=== PATIENT | male | born 1940 | race Caucasian/White ===

== ENCOUNTER → 2016-12-31 | Outpatient (CLI) | payer OTHER ==
[~2016-12-31] MED LIST: ALPOPSD OPR; ASPI81TA28 PO; B-COTAB18 PO; BIOTCAP2 PO; CALCTAB5 PO; CHOL2000 PO; FLUT0.0529 NAE; GUAI1TAB55 PO; HYDCR1CL EX; HYDR2.5C37; LOSA25TA18 PO; MAGN400T6 PO; TRAV0.00 OPB
--- NOTE | 2016-12-31 09:19 | DIAGNOSTIC IMAGING REPORT ---
RIGHT HIP 2 VIEWS HISTORY: Right hip pain. COMPARISON: None. FINDINGS: There is no fracture or dislocation. Soft tissues are unremarkable. No radiopaque foreign bodies. The visualized pelvic bones are intact. Minimal cartilage space narrowing and subchondral sclerosis of the right hip. IMPRESSION: No fractures. Minor arthritic change Electronically signed by: Chris Juarez M.D. 12/31/2016 9:18 AM Dictated Date/Time: 12/31/2016 9:17 AM
== END | disposition home or self-care (01) ==
LOC: C.RADBC 08:32
PROVIDERS: ATTEND Internal Medicine
DX: M25.351 Other instability, right hip (principal); M25.551 Pain in right hip

== ENCOUNTER → 2017-01-14 | Outpatient (CLI) | payer OTHER ==
[2017-01-14 12:41] LABS: BASO % 0.4 %; BASO ABS # 0.02 K/uL (0-0.2); COMPLETE YES; EOS % 2.6 %; HEMATOCRIT 44.9 % (42-52); IG% 0.4 %; LYMPH % 26.2 %; LYMPH ABS # 1.49 K/uL (1.2-3.4); MEAN CELL VOLUME 91.8 fL (80-100); MEAN CORPUSCULAR HEMOGLOBIN 31.9 pg (25-34); MEAN CORPUSCULAR HGB CONC 34.7 g/dl (32-36); NEUT % 60.4 %; PLATELET COUNT 155 K/uL (130-400); RED BLOOD COUNT 4.89 M/uL (4.7-6.1); WHITE BLOOD COUNT 5.68 K/uL (4.8-10.8)
== END | disposition home or self-care (01) ==
LOC: C.LAB 10:57
PROVIDERS: ATTEND Internal Medicine Hematology & Oncology
DX: E83.119 Hemochromatosis, unspecified (principal)

== ENCOUNTER → 2017-02-15 | Outpatient (CLI) | payer OTHER ==
[2017-02-15 10:58] LABS: BASO % 1.1 %; BASO ABS # 0.07 K/uL (0-0.2); COMPLETE YES; EOS % 3.5 %; HEMATOCRIT 44.8 % (42-52); IG% 0.5 %; LYMPH % 19.5 %; LYMPH ABS # 1.27 K/uL (1.2-3.4); MEAN CELL VOLUME 91.2 fL (80-100); MEAN CORPUSCULAR HEMOGLOBIN 31.4 pg (25-34); MEAN CORPUSCULAR HGB CONC 34.4 g/dl (32-36); MEAN PLATELET VOLUME 10.1 fL (7.4-10.4); MONO % 10.8 %; NEUT % 64.6 %; PLATELET COUNT 165 K/uL (130-400); RED BLOOD COUNT 4.91 M/uL (4.7-6.1)
[2017-02-15 11:17] LABS: ALT/SGPT 30 U/L (12-78); BLOOD UREA NITROGEN 26 mg/dl (7-18); BUN/CREATININE RATIO 26.2 (10-20); CALCIUM 9.6 mg/dl (8.5-10.1); CARBON DIOXIDE 29 mmol/L (21-32); CHLORIDE 110 mmol/L (98-107); CHOLESTEROL 142 mg/dl (0-200); CREATININE 0.98 mg/dl (0.60-1.40); GLUCOSE 95 mg/dl (70-99); POTASSIUM 4.4 mmol/L (3.5-5.1); SODIUM 143 mmol/L (136-145)
[2017-02-15 11:24] LABS: ALB/GLOB RATIO 1.3 (0.9-2); ALKALINE PHOSPHATASE 60 U/L (45-117); AST/SGOT 16 U/L (15-37); CHOLESTEROL/HDL RATIO 3.2; FERRITIN 54.3 ng/ml (8.0-388.0); HDL CHOLESTEROL 45 mg/dl; LDL CHOLESTEROL CALCULATED 84 mg/dl; PROSTATE SPECIFIC ANTIGEN 0.649 ng/ml (0.000-4.000); TRIGLYCERIDES 63 mg/dl (0-150); VERY LOW DENSITY LIPOPROT CALC 13 mg/dl
== END | disposition home or self-care (01) ==
LOC: C.LABBC 08:37
PROVIDERS: ATTEND Internal Medicine
DX: I10 Essential (primary) hypertension (principal); E83.119 Hemochromatosis, unspecified; Z12.5 Encounter for screening for malignant neoplasm of prostate

== ENCOUNTER → 2018-02-16 | Outpatient (CLI) | payer OTHER ==
[2018-02-16 09:53] LABS: ALBUMIN 3.9 gm/dl (3.4-5.0); ALKALINE PHOSPHATASE 60 U/L (45-117); ALT/SGPT 43 U/L (12-78); AST/SGOT 21 U/L (15-37); BLOOD UREA NITROGEN 18 mg/dl (7-18); CALCIUM 9.6 mg/dl (8.5-10.1); CARBON DIOXIDE 28 mmol/L (21-32); CHOLESTEROL 171 mg/dl (0-200); CREATININE 0.91 mg/dl (0.60-1.40); GLUCOSE 94 mg/dl (70-99); LDL CHOLESTEROL CALCULATED 102 mg/dl; POTASSIUM 3.9 mmol/L (3.5-5.1); SODIUM 141 mmol/L (136-145); TOTAL PROTEIN 6.9 gm/dl (6.4-8.2)
== END | disposition home or self-care (01) ==
LOC: C.LAB 08:01
PROVIDERS: ATTEND Nurse Practitioner Family
DX: Z00.00 Encounter for general adult medical examination without abnormal findings (principal); E83.119 Hemochromatosis, unspecified; I10 Essential (primary) hypertension

== ENCOUNTER 2019-03-13 06:35 | Inpatient (IN) ==
--- NOTE | 2019-02-27 16:36 | PAT Medication Instructions ---
Medication Instructions Date of Service February 27, 2019 Home Medications B-complex with vitamin C [Super B Complex-Vitamin C] 1 tab PO QAM biotin 10,000 mcg PO QAM brimonidine [Lumify] 1 drp OPHTHALMIC (EYE) DAILY NEEDED cholecalciferol (vitamin D3) [Vitamin D3] 2,000 unit PO QAM cyanocobalamin (vitamin B-12) [Vitamin B-12] 2,000 mcg PO QAM diphenhydramine HCl [Unisom SleepGels] 50 mg PO HS hydrocortisone [Proctosol HC] 1 applic [place] BID NEEDED latanoprost 1 drp OPHTHALMIC (EYE) PM losartan 25 mg PO QDD losartan 50 mg PO QAM naproxen sodium 550 mg PO BID ASK your surgeon for instructions naproxen sodium 550 mg PO BID DO NOT take the morning of surgery losartan 50 mg PO QAM hydrocortisone [Proctosol HC] 1 applic [place] BID NEEDED B-complex with vitamin C [Super B Complex-Vitamin C] 1 tab PO QAM biotin 10,000 mcg PO QAM cholecalciferol (vitamin D3) [Vitamin D3] 2,000 unit PO QAM cyanocobalamin (vitamin B-12) [Vitamin B-12] 2,000 mcg PO QAM Take morning of surgery With a small sip of water, OTHERWISE NOTHING TO EAT OR DRINK AFTER MIDNIGHT: brimonidine [Lumify] 1 drp OPHTHALMIC (EYE) DAILY NEEDED (if needed) Take evening before surgery latanoprost 1 drp OPHTHALMIC (EYE) PM losartan 25 mg PO QDD hydrocortisone [Proctosol HC] 1 applic [place] BID NEEDED (if needed) diphenhydramine HCl [Unisom SleepGels] 50 mg PO HS brimonidine [Lumify] 1 drp OPHTHALMIC (EYE) DAILY NEEDED (if needed) Other Notes If you have any questions please call us at [phone] or [phone] or [phone] or [phone]
--- NOTE | 2019-02-28 10:11 | Anesthesiology Consultation ---
Date of Service February 28, 2019 Assessment & Plan (1) Encounter for pre-operative examination: *caution w/ SAB, pt has moderate . Chart Review Chart Review: Acceptable Risk for Surgery and Patient seen in Pre Admission Testing Teaching & Discussion Instructed NPO after midnight before surgery, except medications with 15 cc of water. Medication instructions provided according to the PAT guidelines. History Surgery Operation Date: 03/13/19 09:05 Proposed Procedures p Left Total Hip Arthroplasty - Lázaro Torres MD Height/Weight Height: 5 ft 10 in Weight: 94.4 kg Allergies Allergy/AdvReac Type Severity Reaction Status Date / Time No Known Allergies Allergy Verified 03/13/19 06:57 Medications Home Medications Medication Instructions Recorded Confirmed Last Taken B-complex with vitamin C [Super B 1 tab PO QAM 02/20/19 03/13/19 03/12/19 08:00 Complex-Vitamin C] biotin 10,000 mcg PO QAM 02/20/19 03/13/19 03/12/19 08:00 brimonidine [Lumify] 1 drp OPHTHALMIC (EYE) DAILY PRN 02/20/19 03/13/19 03/12/19 23:00 cholecalciferol (vitamin D3) 2,000 unit PO QAM 02/20/19 03/13/19 03/12/19 08:00 [Vitamin D3] cyanocobalamin (vitamin B-12) 2,000 mcg PO QAM 02/20/19 03/13/19 03/12/19 08:00 [Vitamin B-12] diphenhydramine HCl [Unisom 50 mg PO HS 02/20/19 03/13/19 03/12/19 23:00 SleepGels] hydrocortisone [Proctosol HC] 1 applic [place] BID PRN 02/20/19 03/13/19 Unknown latanoprost 1 drp OPHTHALMIC (EYE) PM 02/20/19 03/13/19 03/12/19 20:00 losartan 25 mg PO QDD 02/20/19 03/13/19 03/12/19 18:00 losartan 50 mg PO QAM 02/20/19 03/13/19 03/12/19 08:00 naproxen sodium 550 mg PO BID 02/20/19 03/13/19 03/05/19 08:00 Active Medications Generic Name Dose Route Start Last Admin Trade Name Freq PRN Reason Stop Dose Admin Acetaminophen 1,000 mg 03/13/19 06:00 03/13/19 07:11 Tylenol PO 03/13/19 18:00 1,000 mg PREOP GARY Administration Famotidine 20 mg 03/13/19 06:00 03/13/19 07:11 Pepcid PO 03/13/19 18:00 20 mg PREOP GARY Administration Gabapentin 300 mg 03/13/19 06:00 03/13/19 07:10 Neurontin PO 03/13/19 18:00 300 mg PREOP GARY Administration Lactated Ringer's 1,000 mls @ 15 mls/hr 03/13/19 06:00 03/13/19 07:20 Lr IV 03/13/19 18:00 15 mls/hr .Q24H GARY Administration Metoclopramide HCl 10 mg 03/13/19 06:00 03/13/19 07:10 Reglan PO 03/13/19 18:00 10 mg PREOP GARY Administration Past Medical History Medical History Heart murmur Moderate . Hemochromatosis SEES [facility] History of skin cancer Several lesions removed, many benign. Hypertension Increased urinary frequency Osteoarthritis Aortic stenosis, moderate Per 03/06/19 echo pg 18mmHg Exercise / Class Metabolic Activity III < 4 Walking/Shop/Light housework (Denies CP or SOB with stairs but does not do regularly. Using cane for ambulation prn.) Past Family History Family History Grandmother (Paternal) No problems noted. Mother Heart disease Past Surgical History Surgical History Hx of tonsillectomy Hx of wisdom tooth extraction History of colonoscopy Past Anesthesia History No Hx of Anesthesia Complications and No Family Hx of Anesthesia Complications History of PONV No Hx of PONV and No Hx of Motion Sickness Social History Smoking Status: Former smoker tobacco type: cigarettes Do You Dip or Chew Tobacco: No Smoking End Date: 1990 Hx Alcohol Use: Yes Alcohol type: beer and wine alcohol intake frequency: a few times a month Hx Substance Use: No Review of Systems Pt denies any recent chest pain, shortness of breath, palpitations, cough, fever or URI. +Hoarseness recently Physical Exam Vital Signs Last Vital Signs Temp 36.8 C 03/13/19 07:07 Pulse 71 03/13/19 07:07 Resp 18 03/13/19 07:07 BP 139/78 03/13/19 07:07 Pulse Ox 93 03/13/19 07:07 BP: 133/75 P: 67bpm SPO2: 96% RA T: 98.5 F R: 12 ENMT Mouth: + dental restorations (few caps, three implants); no chipped teeth and no loose teeth Thyromental Distance: < 3.5 Finger Breadths (3) Mallampati Class: II Neck normal visual inspection and + limited neck extension (moderately, but no pain with extension) Respiratory normal respiratory effort Auscultation: lungs clear to auscultation bilaterally Cardiovascular Rate/Rhythm: regular rate and regular rhythm Heart Sounds: + murmur (III/ systolic ejection murmur, loudest at RSB but heard across precordium) Vessels: no carotid bruit Extremities: no edema Testing Laboratory Results Blood Type O Positive 02/28/19 10:36 Antibody Screen NEGATIVE 02/28/19 10:36 02/07/19 WBC: 5.45 H/H: 15.6/44.6 PLATELETS: 167 SODIUM: 142 POTASSIUM: 3.9 CHLORIDE: 106 CO2: 31 BUN: 25 CREATININE: 0.92 GLUCOSE: 82 Electrocardiogram Date: 02/28/19 Findings: + NSR @ (61bpm) Chest X-Ray Date: 02/28/19 Findings: + NAD Echocardiogram Date: 03/06/19 EF: >70% Hyperdynamic left ventricular systolic function. Mild concentric LVH. Grade 1 LV diastolic dysfunction. Normal RV size and systolic function. Moderate calcific aortic stenosis. The calculated aortic valve using the continuity equation is 1.1 cm. Aortic mean pressure gradient is 19 mmHg. Trace aortic mitral and tricuspid regurgitation. Normal estimated right heart pressures. Compared to an echocardiogram of May 2014 aortic stenosis is now present. Stress Test Date: 06/10/14 Type: exercise Resting EF: 60-65% Negative exercise stress echocardiogram for ischemia at 86% MPHR. Negative exercise stress EKG for ischemia at 86% MPHR. The patient complained of no exercise-induced chest pain. Normal blood pressure response with exercise. No arrhythmia. Resting PACs noted. Rare PVCs with exercise. Resting echo: Normal LV size, wall motion, and systolic function. Mild LVH. Sclerotic aortic valve without significant stenosis or regurgitation.
--- NOTE | 2019-02-28 11:04 | XRay Report ---
XR chest Pre-admission PA/Lat CLINICAL HISTORY: PAT preoperative evaluation COMPARISON STUDY: No previous studies for comparison. FINDINGS: The bones soft tissues and hemidiaphragms are normal. The cardiomediastinal silhouette is n ormal. The lungs are clear. The pulmonary vasculature is normal. IMPRESSION: Negative chest. The above report was generated using voice recognition software. It may contain grammatical, syntax or spelling errors. Electronically signed by: Nile Lipscomb M.D. 02/28/2019 11:03 AM
--- NOTE | 2019-03-08 23:11 | History and Physical Report ---
DATE OF ADMISSION: 03/13/2019 CHIEF COMPLAINT: Bilateral hip pain and discomfort, left side greater than right. HISTORY OF PRESENT ILLNESS: A 78-year-old gentleman who presents for surgical treatment of his hips. He is referred by my partner, Dr. Gilbert. He has got a long history of bilateral hip pain and discomfort, left side a bit worse than the right. He has been through extensive conservative treatment including physical therapy, which did help initially but became less successful over time. He describes groin pain, thigh pain. He takes NSAIDs, which takes the edge off at best. He has difficulty putting his shoes and socks on. The more he walks, the more it hurts. He limps all day long and more as the day goes on. He has nighttime pain. He would like to have his left hip fixed. PAST MEDICAL HISTORY: 1. Hypertension. 2. Hemochromatosis requiring intermittent phlebotomies. 3. Lumbar disc disease. PAST SURGICAL HISTORY: None. ALLERGIES: None. CURRENT MEDICATIONS: 1. Naproxen. 2. Unisom. 3. Losartan 50 mg a day. 3. Latanoprost eye drops. 4. Proctozone. 5. Vitamin B12. 6. Super B. 7. Vitamin D3. SOCIAL HISTORY: A 78-year-old male. He is . He is quite active. He does not smoke. Two drinks per week. FAMILY HISTORY: Noncontributory. REVIEW OF HISTORY: Negative for diabetes, neurologic problem, vascular problem, bleeding disorders. Denies any chest pain or shortness of breath. No history of DVT or PE. No known bleeding problems. PHYSICAL EXAMINATION: GENERAL: Reveals a healthy, pleasant middle-aged male. Looks to be in pretty good health. HEENT: Benign. NECK: Supple, no lymphadenopathy. LUNGS: Clear to auscultation. HEART: Has a regular rate and rhythm. ABDOMEN: Soft, nontender, nondistended. EXTREMITIES: Grossly neurovascularly intact except as follows: Examination of both hips reveals the patient ambulates with a bit of a limp. His leg lengths appear pretty equal. He has stiffness with any type of attempted hip motion. Internal rotation is to about neutral, external rotation to about 20 degrees. He has got groin pain with this and his pelvis rocks. He has got similar exams on both sides. Negative straight leg raise. X-RAYS: X-rays of both hips reveal advanced bilateral hip DJD. The right hip is actually a little bit worse than the left radiographically. He has got cystic changes in both hips on the femoral and acetabular side. X-rays of the lumbar spine reveal some degenerative scoliosis. 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 ASSESSMENT: A 78-year-old white male with advanced bilateral hip degenerative joint disease, left side more symptomatic than the right. It is affecting his quality of life and he would like to proceed with surgical treatment. PLAN: We are going to take him to the operating room and do a left total hip replacement. The risks and benefits of this procedure were explained to the patient including but not limited to DVT, PE, , infection, neurological injury, vascular injury, bleeding problem, pain, limited range of motion, stiffness, failure to relieve symptoms, incomplete relief of symptoms, need for further surgery in the future, fracture, leg length inequality, nerve palsy, etc. The patient understands and desires to proceed. Informed consent was obtained. We will likely lengthen his leg some. As a result, it may be longer than the other leg, but he is going to need his other hip fixed at some point in the future. As far as discharge plans, he is planning to be discharged to home using [facility] home health program. His can assist in his care and his sons come to stay with him.
[~2019-03-13 06:35] MED LIST changes: +ACETAMINOPHEN 500 MG TAB PO SCH; -ALPOPSD OPR; -ASPI81TA28 PO; -B-COTAB18 PO; -BIOTCAP2 PO; +BUPIVACAINE 0.5 % 5 MG/1 ML PF 10ML VIAL ONE; +BUPIVACAINE LIPOSOME/PF 266 MG, BUPIVACAINE/EPINEPHRINE 50 ML, SODIUM CHLORIDE 0.9% 30 ... INFIL SCH; -CALCTAB5 PO; +CEFAZOLIN 2000MG 2,000 MG/15 ML SYR IV SCH; -CHOL2000 PO; +FAMOTIDINE 20 MG TAB PO SCH; -FLUT0.0529 NAE; +GABAPENTIN 300 MG CAP PO SCH; -GUAI1TAB55 PO; -HYDCR1CL EX; -HYDR2.5C37; -LOSA25TA18 PO; +LR 500ML BOLUS, THEN 15ML/HR IV SCH; +LR 60ML/HR IV SCH; -MAGN400T6 PO; +METOCLOPRAMIDE HCL 10 MG TABLET PO SCH; +TRANEXAMIC ACID 1,000 MG **IV Intra-op IV SCH; -TRAV0.00 OPB
--- NOTE | 2019-03-13 06:56 | History & Physical Bridge Note ---
Date of Service March 13, 2019 History & Physical Bridge Note I have examined the patient, reviewed the History & Physical and in the interval since the performance of the History & Physical I have noted the following changes of clinical significance: no changes noted
[2019-03-13] MEDS ORDERED: PROPOFOL IV EMULSION 10 MG/ML 20 ML VIAL IV ONE (08:06)
[2019-03-13] MEDS ORDERED: MIDAZOLAM HCL 1 MG/ML 2ML VIAL ONE ×2 (08:07→08:40)
[2019-03-13] MEDS ORDERED: fentaNYL citrate 100 MCG/2 ML VIAL ONE (08:07)
[2019-03-13] MEDS ORDERED: MoRPHine SULFATE PF 1 MG/ML 10 ML AMP/VIAL ONE (08:08)
[2019-03-13] MEDS ORDERED: BACITRACIN INJ 50,000 UNIT VIAL ONE (08:53)
[2019-03-13] MEDS ORDERED: BUPIVACAINE/EPINEPHRINE 0.5% MPF 1:200,000 30 ML VIAL ONE (08:53)
[2019-03-13] MEDS ORDERED: ONDANSETRON INJ 2 MG/ML 2 ML VIAL IV PRN ×2 (09:12→11:58)
[2019-03-13] MEDS ORDERED: NALOXONE HCL 0.4 MG/1 ML VIAL/CARP IV PRN ×2 (09:12→11:58)
[2019-03-13] MEDS ORDERED: PROMETHAZINE HCL 12.5 MG in SODIUM CHLORIDE 0.9% 50 ML IV PRN (09:12)
[2019-03-13] MEDS ORDERED: NALOXONE HCL 0.08 MG in SYRINGE 1.8 ML IV PRN (09:12)
[2019-03-13] MEDS ORDERED: NALOXONE HCL 1 MG in SODIUM CHLORIDE 0.9% 1000ML 1,000 ML IV PRN (09:12)
[2019-03-13] MEDS ORDERED: MoRPHine SULFATE PF 1 MG/ML 10 ML AMP/VIAL INT SPINAL ONE (09:12)
[2019-03-13] MEDS ORDERED: KETOROLAC 30 MG/ML VIAL IV PRN (09:12)
[2019-03-13] MEDS ORDERED: DiphenhydrAMINE HCL 50 MG/ML VIAL IV PRN (09:12)
[2019-03-13] MEDS ORDERED: ePHEDrine sulfate 50 MG/ML AMP IV PRN (09:12)
[2019-03-13] MEDS ORDERED: MEPERIDINE HCL 25 MG/ML CARP IV PRN (09:12)
[2019-03-13] MEDS ORDERED: NALBUPHINE HCL INJ 10 MG/ML AMP IV PRN (09:12)
[2019-03-13] MEDS ORDERED: LACTATED RINGER'S 500 ML IV PRN (09:12)
[2019-03-13] MEDS ORDERED: NO NARCOTICS OR SEDATIVES SCH (09:15)
[2019-03-13] MEDS ORDERED: SODIUM CHLORIDE 0.9% 1000ML 1,000 ML IV SCH (09:15)
[2019-03-13] MEDS ORDERED: DC INTRASPINAL MORPHINE SCH (09:15)
[2019-03-13] MEDS ORDERED: PHENYLEPHRINE HCL 10 MG/ML VIAL ONE (10:00)
[2019-03-13] MEDS ORDERED: ONDANSETRON INJ 2 MG/ML 2 ML VIAL ONE (10:25)
[2019-03-13] MEDS ORDERED: LIDOCAINE HCL 2% 2 ML VIAL/AMP(20MG/ML) INFIL ONE (10:32)
--- NOTE | 2019-03-13 10:44 | Post Operative Brief Note ---
PG Immediate Post Op with CF Date of Surgery March 13, 2019 Pre & Post Diagnosis Operation Date: 03/13/19 09:05 Pre-Op Diagnosis: Left Hip Degenerative Joint Disease Post-Op Diagnosis: Left Hip Degenerative Joint Disease Procedure Operation Date: 03/13/19 09:05 Actual Procedures p Left Total Hip Arthroplasty(Left) - Lázaro Torres MD Surgeon Lázaro Torres MD Proofreader Magdy, PAC Estimated Blood Loss 200 Findings Consistent with Post-Op Diagnosis Fluids 1200 cc Specimens Specimen Description: Permanent specimen A: left femoral head Drains Zaman Catheter (16fr zaman catheter placed by Rebel Curran PA-C, without difficulty; zaman demonstrates clear yellow urine. Output measured and recorded by anesthesia.) Anesthesia Type Spinal MAC Complications none Disposition Accompanied Patient To Recovery: Yes Disposition: Recovery Room
--- NOTE | 2019-03-13 11:05 | XRay Report ---
XR hip 1V LT w pelvis CLINICAL HISTORY: Postoperative examination. COMPARISON: February 28, 2019 DISCUSSION: There are postsurgical changes of a total left hip arthroplasty. Moderately advanced dege nerative changes are present with the right hip. The left acetabular femoral components appear well s eated. There are overlying skin sushila. There is air within the soft tissues consistent with recent surgery. There is no dislocation. IMPRESSION: Postsurgical changes of a total left hip arthroplasty. Electronically signed by: Dk Mcclure M.D. 03/13/2019 11:04 AM
--- NOTE | 2019-03-13 11:24 | Anesthesiology Progress Note ---
Date of Service March 13, 2019 Anesthesia Post Procedure Vital Signs Vital Signs: Temp Pulse Pulse Pulse Resp BP BP 03/13/19 11:20 37.1 C 03/13/19 11:16 63 14 03/13/19 11:15 65 17 125/59 L 03/13/19 11:11 67 14 03/13/19 11:10 67 20 119/66 03/13/19 11:06 65 17 03/13/19 11:05 67 20 125/49 L 03/13/19 11:01 70 26 H 03/13/19 11:00 63 20 130/61 03/13/19 10:56 66 20 03/13/19 10:55 64 15 125/57 L 03/13/19 10:51 79 16 03/13/19 10:50 67 18 123/53 L 03/13/19 10:49 64 14 03/13/19 10:48 36.8 C 65 67 16 121/52 L 121/52 L 03/13/19 07:07 36.8 C 71 18 139/78 Pulse Ox 03/13/19 11:20 96 03/13/19 11:16 91 03/13/19 11:15 91 03/13/19 11:11 97 03/13/19 11:10 94 03/13/19 11:06 100 03/13/19 11:05 100 03/13/19 11:01 97 03/13/19 11:00 98 03/13/19 10:56 98 03/13/19 10:55 99 03/13/19 10:51 99 03/13/19 10:50 98 03/13/19 10:49 98 03/13/19 10:48 98 03/13/19 07:07 93 Pain Intensity Left Hip: Pain Intensity: 0 Transfer of Care Handoff Completed per policy Notes Mental Status: alert / awake / arousable Patient Amnestic to Procedure: Yes Nausea / Vomiting: adequately controlled Pain: adequately controlled Airway Patency, RR, SpO2: stable & adequate BP & HR: stable & adequate Hydration State: stable & adequate Anesthetic Complications: no major complications apparent
[2019-03-13] MEDS ORDERED: MAGNESIUM HYDROXIDE SUSP 30 ML UDC PO PRN (11:58)
[2019-03-13] MEDS ORDERED: METOCLOPRAMIDE HCL INJ 5 MG/ML 2 ML VIAL IV PRN (11:58)
[2019-03-13] MEDS ORDERED: ALUMINUM/MAGNESIUM SUSP 30 ML UDC PO PRN (11:58)
[2019-03-13] MEDS ORDERED: HYDROmorphone INJ 0.5 MG/0.5 ML SYR IV PRN (11:58)
[2019-03-13] MEDS ORDERED: BISACODYL 10 MG SUPP PR PRN (11:58)
[2019-03-13] MEDS ORDERED: TRAMADOL HCL 50 MG TABLET PO PRN (11:58)
[2019-03-13] MEDS ORDERED: TAMSULOSIN HCL 0.4 MG CAP PO PRN (11:58)
[2019-03-13] MEDS ORDERED: HYDROCORTISONE HC 2.5% CRM 30GM TUBE EXT PRN (11:58)
[2019-03-13] MEDS: SODIUM CHLORIDE 0.9% 1000ML 1,000 ML IV SCH ×2 (14:11→21:24)
--- NOTE | 2019-03-13 15:19 | Progress Note ---
DATE: 03/13/2019 SUBJECTIVE: A 78-year-old gentleman postop from a left hip replacement. He is doing well. A little nauseated earlier, but doing better now. No chest pain or shortness of breath. Does not have any real hip pain. OBJECTIVE: VITAL SIGNS: Temperature 36.3. Vital signs stable. GENERAL: Physical examination shows a pleasant, middle-aged male. He is lying in bed, looks pretty comfortable. LUNGS: Clear to auscultation. HEART: Regular rate and rhythm. ABDOMEN: Soft, nontender, nondistended. EXTREMITIES: Grossly neurovascularly intact except as follows: Examination of the left lower extremity reveals the leg to be well aligned. Leg lengths were equal. Dressing is clean, dry and intact. Thigh is soft and supple. He can dorsiflex and plantarflex his foot appropriately. X-RAYS: X-rays of the left hip from recovery room reviewed. It shows left uncemented total hip arthroplasty. Components looked to be in good position. No signs of problems. ASSESSMENT: A 78-year-old gentleman postop from a left hip replacement, doing pretty well. His pain is controlled. His hip is located. He is neurologically intact. PLAN: 1. DVT prophylaxis including thigh-high TEDs, SCDs, and aspirin twice a day. 2. PT/OT. Weight bear as tolerated. Left total knee protocol. 3. Pain control, doing okay with current pain regimen. 4. IV antibiotics x24 hours. 5. Disposition: He is planning to be discharged to home with some home health once adequately recovered.
[2019-03-13] MEDS: KETOROLAC TROMETHAMINE 15 MG/ML VIAL IV SCH ×2 (16:32→21:24)
[2019-03-13] MEDS ORDERED: TRANEXAMIC ACID 1,000 MG in 0.9 % SODIUM CHLORIDE 100 ML IV SCH (16:45)
[2019-03-13] MEDS: CEFAZOLIN 2000MG 2,000 MG/15 ML SYR IV SCH (17:52)
[2019-03-13] MEDS: ASCORBIC ACID 500 MG TAB PO SCH (17:52)
[2019-03-13] MEDS: ACETAMINOPHEN 500 MG TAB PO SCH (17:52)
[2019-03-13] MEDS: FERROUS GLUCONATE 324 MG TAB PO SCH (17:53)
[2019-03-13] MEDS: LOSARTAN POTASSIUM 25 MG TAB PO SCH (17:55)
[2019-03-13] MEDS: ASPIRIN 81 MG ECTAB PO SCH (20:08)
[2019-03-13] MEDS: DOCUSATE SODIUM 100 MG CAP PO SCH (20:08)
[2019-03-13] MEDS: LATANOPROST 0.005% OP SOLN 2.5 ML BTL OP SCH (20:09)
[2019-03-13] MEDS: SENNA 8.6 MG TAB PO SCH (20:09)
--- NOTE | 2019-03-13 22:52 | Operative Report ---
DATE OF OPERATION: 03/13/2019 SURGEON: Lázaro Torres MD PROPERTY DISPOSAL MANAGER: ROSALIO Titus PREOPERATIVE DIAGNOSIS: Left hip degenerative joint disease. POSTOPERATIVE DIAGNOSIS: Left hip degenerative joint disease. PROCEDURE PERFORMED: Left uncemented total hip arthroplasty. COMPLICATIONS: None. ESTIMATED BLOOD LOSS: 200 mL. FLUID REPLACEMENT: 1200 mL crystalloid fluid replacement. ANESTHESIA: Spinal. DRAINS: None. SPECIMENS: Left femoral head sent for pathology. OPERATIVE INDICATIONS: The patient is a 78-year-old gentleman who has had several year history of bilateral hip pain and discomfort. Actually started out on his right hip and then progressed to his left hip. The left hip was bothered more than the right. X-ray showed advanced hip arthritis in both sides. He elected to proceed with total hip arthroplasty. OPERATIVE FINDINGS: Operative findings were advanced left hip DJD. He did have grade 4 changes of the femoral head and acetabulum. Not a lot of eburnation, but full thickness cartilage loss. He has moderate sized joint effusion. Some moderate synovitis. OPERATIVE IMPLANTS: Operative implants consisted of: 1. Biomet G7 size 54 mm acetabular shell. 2. A 6.5 cancellous acetabular screws, 1 at 35 mm length and 1 at 25 mm length. 3. An apex hole eliminator. 4. A 54 mm outer diameter and a 36 mm inner diameter highly cross-linked polyethylene liner. 5. DePuy Corail size 10 KLA femoral stem. 6. A +5/36 mm ceramic articular ball. OPERATIVE PROCEDURE: The patient was taken to the operating room, identified and placed on the operating table in supine position. All contact areas were appropriately padded. IV antibiotics provided by anesthesia team. Spinal anesthetic had been implemented in the holding area. Regan catheter was placed in sterile fashion. The patient was then placed in the right lateral decubitus position. An axillary roll was placed. Stlberg hip positioner was used for positioning. Left hip and leg were then prepped and draped in usual sterile fashion. Posterolateral approach to the left hip was then performed through a curvilinear incision centered over the greater trochanter. Sharp dissection was carried through subcutaneous tissues down to the level of the IT band and gluteal fascia. The IT band and gluteal fascia were incised longitudinally in line with skin incision. The underlying greater trochanteric bursa was excised. The piriformis and external rotators were tagged and taken off the posterior aspect of the hip joint capsule. Great care was taken throughout the procedure to protect the sciatic nerve at all times. Posterior capsulotomy was then performed leaving a large flap for later repair. Hip was internally rotated and dislocated. Femoral neck osteotomy cut was made with final cut about 12 mm above the lesser trochanter. Femoral head was removed and sent for pathology. The femur was retracted anteriorly. Attention was then drawn to the acetabulum. The acetabular labrum was excised. The pulvinar fat was excised. Sequential reaming of the acetabulum was then performed beginning with a size 43 and progressing up to 53. A 54 mm Biomet G7 acetabular shell was then placed in about 40 degrees of lateral opening and 20 degrees of anteversion. It was fixed with two 6.5 cancellous acetabular screws. A trial liner was placed. Attention was then drawn to the femur. The proximal femur was entered with a Tradier cutter followed by canal finder. I then broached beginning with a size 8 and progressing up to a 10. We got excellent fit at 10. Calcar reamer was used to smoothen off the calcar. I then trialed the hip and the +5 articular ball seemed to recreate soft tissue tension appropriately, leg lengths appropriately and was fully stable in full extension and external rotation and flexion to 90 degrees, internal rotation over [address] I elected to place these implants. All trial implants were removed. An apex hole eliminator was placed. Highly cross-linked polyethylene liner was placed. A DePuy Corail size 10 KLA femoral stem was impacted in position. A +5/36 mm ceramic articular ball was placed. Hip was located and once again found to be stable. Attention was then drawn to closing. The wound was irrigated with copious amounts of pulsatile lavage solution. I did inject locally with 60 mL of 0.5% Marcaine with epinephrine. The posterior capsule and external rotators were then repaired through drill holes in the posterior trochanter with #2 Ti-Cron suture. The IT band and gluteal fascia were then closed with #1 PDS suture in running fashion. The subcutaneous tissue was then closed with 2 layers, the deep layer #1 Vicryl sutures, subcutaneous tissue with 2-0 Dexon suture in a buried interrupted fashion. The skin was closed with skin sushila. Leg was then cleaned, dried and a sterile dressing of Xeroform, 4 x 4, sterile ABD pad and foam tape was applied. The patient was then transferred to the recovery room in stable condition. The patient tolerated the procedure well with no complication. All needle and sponge counts were correct at the end of the operation. I attest to the content of the Intraoperative Record and any orders documented therein. Any exception s are noted below.
[2019-03-14] MEDS: KETOROLAC TROMETHAMINE 15 MG/ML VIAL IV SCH ×4 (03:06→21:22)
[2019-03-14] MEDS: CEFAZOLIN 2000MG 2,000 MG/15 ML SYR IV SCH (03:06)
[2019-03-14] MEDS: ACETAMINOPHEN 500 MG TAB PO SCH ×3 (03:06→18:07)
[2019-03-14 05:56] LABS: Basophils # (auto) 0.02 K/uL (0-0.2); Basophils % (auto) 0.3 %; Eosinophils # (auto) 0.06 K/uL (0-0.5); Eosinophils % (auto) 0.8 %; Hematocrit (blood only) 36.8 % (42-52); Hemoglobin 12.7 g/dL (14.0-18.0); Immature Granulocytes # (auto) 0.02 K/uL (0.00-0.02); Immature Granulocytes % (auto) 0.3 %; Lymphocytes # (auto) 1.08 K/uL (1.2-3.4); Lymphocytes % (auto) 14.3 %; Mean Corpuscular Hgb Conc 34.5 g/dL (32-36); Mean Corpuscular Volume 91.8 fL (80-100); Mean Platelet Volume 9.5 fL (7.4-10.4); Monocytes # (auto) 1.06 K/uL (0.11-0.59); Neutrophils # (auto) 5.32 K/uL (1.4-6.5); Neutrophils % (auto) 70.3 %; Platelet Count 140 K/uL (130-400); RDW Coefficient of Variation 13.3 % (11.5-14.5); RDW Standard Deviation 44.1 fL (36.4-46.3); Red Blood Count 4.01 M/uL (4.7-6.1); White Blood Count 7.56 K/uL (4.8-10.8)
[2019-03-14 06:34] LABS: BUN Creatinine Ratio 27.9 (10-20); Calcium 8.8 mg/dl (8.5-10.1); Creatinine Clr Calc Pharmacy 98.3 ml/min; Est GFR (African American) 104.4; Est GFR (Non-African American) 90.1; Potassium 4.5 mmol/L (3.5-5.1)
--- NOTE | 2019-03-14 08:07 | Progress Note ---
DATE: 03/14/2019 SUBJECTIVE: A 78-year-old gentleman postop day 1 from a left hip replacement. He is doing pretty well. Not really having much pain currently. Denies any chest pain or shortness of breath. Not feeling dizzy or lightheaded. OBJECTIVE: VITAL SIGNS: Temperature 36.5. Vital signs stable. GENERAL: Physical examination shows a pleasant, middle-aged male. He is lying in bed, looks pretty comfortable. EXTREMITIES: Examination of the left hip reveals the dressing to be clean, dry and intact. Leg lengths are equal. Thigh is soft and supple. He is neurologically intact. Hip is located. LABORATORY DATA: Hemoglobin is 12.7. Hematocrit 36.8. Electrolytes are stable. ASSESSMENT: A 78-year-old gentleman postop day 1 from a left hip replacement, doing well. Pain is controlled. Hip is located. He is neurologically intact. PLAN: 1. DVT prophylaxis including thigh-high TEDs, SCDs, and aspirin twice a day. 2. PT/OT. Weight bear as tolerated. Left total hip protocol. 3. Pain control, doing well with current pain regimen. 4. Disposition: Plan to discharge to home with some home health once medically stable and recovered.
[2019-03-14] MEDS: MULTIVITAMIN TAB PO SCH (08:44)
[2019-03-14] MEDS: ASPIRIN 81 MG ECTAB PO SCH ×2 (08:44→21:23)
[2019-03-14] MEDS: ASCORBIC ACID 500 MG TAB PO SCH ×2 (08:44→16:34)
[2019-03-14] MEDS: LOSARTAN POTASSIUM 25 MG TAB PO SCH ×2 (08:45→16:34)
[2019-03-14] MEDS: FERROUS GLUCONATE 324 MG TAB PO SCH ×2 (08:45→16:34)
[2019-03-14] MEDS: CYANOCOBALAMIN 500 MCG TABLET (VITAMIN B-12) PO SCH (08:45)
[2019-03-14] MEDS: CHOLECALCIFEROL 1,000 UNITS TAB PO SCH (08:45)
[2019-03-14] MEDS: VITAMIN B COMPLEX TAB PO SCH (08:45)
[2019-03-14] MEDS: DOCUSATE SODIUM 100 MG CAP PO SCH ×2 (08:45→21:22)
[2019-03-14] MEDS ORDERED: NON-FORMULARY MEDICATION (Biotin 10,000 MCG) PO SCH (09:00)
[2019-03-14] MEDS: SENNA 8.6 MG TAB PO SCH (21:23)
[2019-03-14] MEDS: LATANOPROST 0.005% OP SOLN 2.5 ML BTL OP SCH (21:23)
[2019-03-15] MEDS: ACETAMINOPHEN 500 MG TAB PO SCH ×2 (03:12→09:30)
[2019-03-15] MEDS: KETOROLAC TROMETHAMINE 15 MG/ML VIAL IV SCH ×2 (03:13→09:27)
[2019-03-15] MEDS: ASPIRIN 81 MG ECTAB PO SCH (07:34)
[2019-03-15] MEDS: MULTIVITAMIN TAB PO SCH (07:35)
[2019-03-15] MEDS: FERROUS GLUCONATE 324 MG TAB PO SCH (07:35)
[2019-03-15] MEDS: VITAMIN B COMPLEX TAB PO SCH (07:35)
[2019-03-15] MEDS: ASCORBIC ACID 500 MG TAB PO SCH (07:35)
[2019-03-15] MEDS: LOSARTAN POTASSIUM 25 MG TAB PO SCH (07:35)
[2019-03-15] MEDS: CYANOCOBALAMIN 500 MCG TABLET (VITAMIN B-12) PO SCH (07:36)
[2019-03-15] MEDS: DOCUSATE SODIUM 100 MG CAP PO SCH (07:36)
[2019-03-15] MEDS: CHOLECALCIFEROL 1,000 UNITS TAB PO SCH (07:36)
--- NOTE | 2019-03-15 11:57 | Progress Note ---
DATE: 03/15/2019 SUBJECTIVE: A 78-year-old gentleman postop day 2 from a left hip replacement. He is doing well. Pain is controlled. Therapy is going well. No chest pain or shortness of breath. Not feeling dizzy or lightheaded. OBJECTIVE: VITAL SIGNS: Temp 37.0. Vital signs stable. GENERAL: Shows a pleasant, middle-aged male. He is sitting up in his bedside chair this morning when I visited with him. He looks comfortable. HIPS: Examination of left hip reveals the dressing to be clean, dry and intact. Leg lengths are equal. Hip is located. Thigh is soft and supple. NEUROLOGIC: He is neurologically intact. ASSESSMENT: A 78-year-old gentleman postop day 2 from left hip replacement, doing well. His pain is controlled. His hip is located. He is neurologically intact. PLAN: 1. DVT prophylaxis including thigh-high TEDs, SCDs, and aspirin twice a day. 2. PT/OT. Weight bear as tolerated. Left total hip protocol. 3. Pain control, doing well with current pain regimen. 4. Disposition. Plan to discharge to home today with some home health.
--- NOTE | 2019-03-19 15:40 | Discharge Summary ---
ADMITTING PHYSICIAN AND SURGEON: Dr. Lázaro Torres. ADMITTING DIAGNOSIS: Left hip degenerative joint disease. SURGERY PERFORMED: Left total hip arthroplasty. SECONDARY DIAGNOSES: Hypertension, hemochromatosis, lumbar disc disease. CONSULTS: None obtained. HISTORY AND PHYSICAL EXAMINATION: Well documented in the patient's chart. HOSPITAL COURSE: The patient was admitted on 03/13/2019, underwent total hip arthroplasty, tolerated the procedure well. There were no complications. He was transferred to the PACU postoperatively and later to the orthopedic floor for further care. He was given Ancef for antibiotic prophylaxis, EMILIANA stockings, SCDs and aspirin for DVT prophylaxis. Hemoglobin, hematocrit and vital signs were monitored during his hospital stay and remained stable. He did not require any blood transfusions. There were no complications. By postoperative day 2, he was tolerating a regular diet, pain was controlled with oral pain medicine. He was participating in physical therapy. Postop day 2, he was discharged home, set up with home health services, given printed discharge instructions as well as new prescriptions for extra-strength Tylenol, aspirin and tramadol. Continue his home medications, continue physical therapy, weightbearing as tolerated, EMILIANA stockings, total hip precautions. Follow up approximately 2 weeks postop or sooner if there are any problems or concerns.
== END 2019-03-15 09:55 | disposition home health service (06) | DRG 470 ==
LOC: ASU 06:35 → 3E 10:48

== ENCOUNTER 2019-05-08 05:00 | Inpatient (IN) ==
--- NOTE | 2019-05-02 16:50 | Anesthesiology Consultation ---
Date of Service May 02, 2019 Assessment & Plan Chart Review Chart Review: Acceptable Risk for Surgery History Surgery Operation Date: 05/08/19 10:55 Proposed Procedures p Right Total Hip Arthroplasty - Lázaro Torres MD Height/Weight Height: 5 ft 10 in Weight: 90.265 kg Allergies Allergy/AdvReac Type Severity Reaction Status Date / Time No Known Allergies Allergy Verified 05/01/19 10:37 Medications Home Medications Medication Instructions Recorded Confirmed Last Taken B-complex with vitamin C [Super B 1 tab PO QAM 02/20/19 05/01/19 03/12/19 08:00 Complex-Vitamin C] Lumify 1 drp OPHTHALMIC (EYE) DAILY PRN 02/20/19 05/01/19 03/12/19 23:00 cholecalciferol (vitamin D3) 2,000 unit PO QAM 02/20/19 05/01/19 03/12/19 08:00 [Vitamin D3] cyanocobalamin (vitamin B-12) 2,000 mcg PO QAM 02/20/19 05/01/19 03/12/19 08:00 [Vitamin B-12] diphenhydramine HCl [Unisom 50 mg PO HS 02/20/19 05/01/19 03/12/19 23:00 SleepGels] hydrocortisone [Proctosol HC] 1 applic PA BID PRN 02/20/19 05/01/19 Unknown latanoprost 1 drp OPHTHALMIC (EYE) PM 02/20/19 05/01/19 03/12/19 20:00 naproxen sodium 550 mg PO BID 02/20/19 05/01/19 03/05/19 08:00 acetaminophen 500 mg PO TID PRN 05/01/19 05/01/19 Unknown aspirin [Aspirin Low Dose] 81 mg PO HS 05/01/19 05/01/19 Unknown biotin 2,500 mcg PO QAM 05/01/19 05/01/19 Unknown losartan 25 mg PO 1830 05/01/19 05/01/19 Unknown losartan 50 mg PO QAM 05/01/19 05/01/19 Unknown Past Medical History Medical History Aortic stenosis, moderate Per 03/06/19 echo pg 18mmHg Heart murmur Moderate . Hemochromatosis SEES [facility] History of skin cancer Several lesions removed, many benign. Hypertension Increased urinary frequency Osteoarthritis Past Family History Family History Grandmother (Paternal) No problems noted. Mother Heart disease Past Surgical History Surgical History H/O total hip arthroplasty 03/13/19 Dr. Lázaro Torres left uncemented History of colonoscopy Hx of tonsillectomy Hx of wisdom tooth extraction Social History Smoking Status: Former smoker tobacco type: cigarettes Do You Dip or Chew Tobacco: No Smoking End Date: 1990 Hx Alcohol Use: Yes Alcohol type: beer and wine alcohol intake frequency: a few times a month Hx Substance Use: No substance use type: does not use Testing Laboratory Results Laboratory Tests 04/29/19 04/29/19 12:51 12:51 WBC 7.35 Hgb 15.7 Hct 46.0 Plt Count 196 Potassium 4.2 Creatinine 0.88 Electrocardiogram Date: 02/28/19 Findings: + NSR @ (61) Chest X-Ray Date: 02/28/19 Findings: + NAD
--- NOTE | 2019-05-04 18:28 | History and Physical Report ---
DATE OF ADMISSION: 05/08/2019 CHIEF COMPLAINT: Persistent right hip pain and discomfort. HISTORY OF PRESENT ILLNESS: The patient is a 78-year-old gentleman who is now about 7 weeks out from a left hip replacement. He has done great from this side. Since about 3-4 weeks, the right hip has been bothering him quite a bit more than the left. Minimal pain in the left hip. He continues to have significant groin pain in the right side. He has been through therapy in the past which has not helped, he takes NSAIDs, which do not help. He has difficulty putting his shoes and socks on the right side. He would like to have his right hip fixed. PAST MEDICAL HISTORY: 1. Hypertension. 2. Hemochromatosis requiring intermittent phlebotomy. 3. Lumbar disc disease. PAST SURGICAL HISTORY: Include left hip replacement done on 03/14/2019. ALLERGIES: None. CURRENT MEDICATIONS: Include: 1. Naproxen. 2. Unasyn. 3. Losartan. 4. Latanoprost eyedrops. 5. Proctozone. 6. Vitamin B12. 7. Super B. 8. Vitamin D3. SOCIAL HISTORY: Significant for a 78-year-old gentleman. He is . Fairly active. Does not smoke. Two drinks per week. FAMILY HISTORY: Noncontributory. REVIEW OF HISTORY: Negative for diabetes, neurologic problem, vascular problem, bleeding disorders. Denies any chest pain or shortness of breath. No history of DVT or PE. No known bleeding problems. PHYSICAL EXAMINATION: GENERAL: Healthy, pleasant, middle-aged male. Looks to be in excellent health. HEENT: Benign. NECK: Supple, no lymphadenopathy. LUNGS: Clear to auscultation. HEART: Regular rate and rhythm. ABDOMEN: Soft, nontender, nondistended. EXTREMITIES: Grossly neurovascularly intact except as follows: Examination of the right hip reveal the patient walks with an antalgic gait. He limps on the right side. Maybe just a 0.5 cm short on the right compared to the left. He does have pain with hip motion. He can internally rotate to about neutral. External rotation is to 20 degrees. Negative straight leg raise. Examination of left hip reveals a well-healed incision. Minimal if any pain with hip motion. He is neurologically intact. X-RAYS: X-rays of right hip reveal advanced right hip degenerative joint disease. Well seated femoral head and the acetabulum as well. He has got complete loss of his joint space. The left hip replacement looks to be in good position with healing appropriately. ASSESSMENT: A 78-year-old gentleman now about 7 weeks out from a left total hip replacement with persistent right hip pain and discomfort secondary to hip arthritis. He would like to have his right hip fixed. Left hip is doing great. PLAN: We will take him to the operating room and do right total hip replacement. The risks and benefits of this procedure were explained to the patient including but not limited to DVT, PE, , infection, neurological injury, vascular injury, bleeding problems, failure to relieve his symptoms, incomplete relief of symptoms, need for further surgery in future, fracture, leg length inequality, nerve palsy, dislocation, fracture, need for blood transfusion, etc. The patient understands and desires to proceed. Informed consent was obtained. I did talk to him about holding his Naproxen 10 days preoperatively. He is planning to be discharged home using [facility] home health program like last time. SHELDON
[2019-05-08] MEDS ORDERED: CEFAZOLIN 2000MG 2,000 MG/15 ML SYR IV SCH (06:00)
[2019-05-08] MEDS ORDERED: TRANEXAMIC ACID 1,000 MG **IV Pre-op IV SCH (06:00)
[2019-05-08] MEDS ORDERED: FAMOTIDINE 20 MG TAB PO SCH (06:00)
[2019-05-08] MEDS ORDERED: ACETAMINOPHEN 500 MG TAB PO SCH (06:00)
[2019-05-08] MEDS ORDERED: LR 60ML/HR IV SCH (06:00)
[2019-05-08] MEDS ORDERED: LR 15ML/HR IV SCH (06:00)
[2019-05-08] MEDS ORDERED: METOCLOPRAMIDE HCL 10 MG TABLET PO SCH (06:00)
[2019-05-08] MEDS ORDERED: GABAPENTIN 300 MG CAP PO SCH (06:00)
[2019-05-08] MEDS ORDERED: BUPIVACAINE 0.5 % 5 MG/1 ML PF 10ML VIAL ONE (06:11)
[2019-05-08] MEDS ORDERED: fentaNYL citrate 100 MCG/2 ML VIAL ONE (06:42)
[2019-05-08] MEDS ORDERED: LIDOCAINE HCL 2% 2 ML VIAL/AMP(20MG/ML) INFIL ONE (06:42)
[2019-05-08] MEDS ORDERED: MIDAZOLAM HCL 1 MG/ML 2ML VIAL ONE ×2 (06:42→08:20)
[2019-05-08] MEDS ORDERED: PROPOFOL IV EMULSION 10 MG/ML 20 ML VIAL IV ONE (06:42)
--- NOTE | 2019-05-08 07:00 | History & Physical Bridge Note ---
Date of Service May 08, 2019 History & Physical Bridge Note I have examined the patient, reviewed the History & Physical and in the interval since the performance of the History & Physical I have noted the following changes of clinical significance: no changes noted
[2019-05-08] MEDS ORDERED: BACITRACIN INJ 50,000 UNIT VIAL ONE (07:06)
[2019-05-08] MEDS ORDERED: BUPIVACAINE/EPINEPHRINE 0.5% MPF 1:200,000 30 ML VIAL ONE (07:06)
[2019-05-08] MEDS ORDERED: ONDANSETRON INJ 2 MG/ML 2 ML VIAL IV PRN ×2 (07:34→10:25)
[2019-05-08] MEDS ORDERED: PROMETHAZINE HCL 6.25 MG in SODIUM CHLORIDE 0.9% 50 ML IV PRN (07:34)
[2019-05-08] MEDS ORDERED: fentaNYL citrate 100 MCG/2 ML VIAL IV PRN (07:34)
[2019-05-08] MEDS ORDERED: ePHEDrine sulfate 50 MG/ML AMP IV PRN (07:34)
[2019-05-08] MEDS ORDERED: ATROPINE SULFATE 0.1 MG/ML 10ML SYR IV PRN (07:34)
[2019-05-08] MEDS ORDERED: ePHEDrine sulfate 50 MG/ML SYR ONE (07:51)
[2019-05-08] MEDS ORDERED: ONDANSETRON INJ 2 MG/ML 2 ML VIAL ONE (07:54)
[2019-05-08] MEDS ORDERED: DEXAMETHASONE SOD INJ 4 MG/ML VIAL ONE (07:54)
--- NOTE | 2019-05-08 08:56 | Post Operative Brief Note ---
PG Immediate Post Op with CF Date of Surgery May 08, 2019 Pre & Post Diagnosis Operation Date: 05/08/19 07:15 Pre-Op Diagnosis: Right Hip Degenerative Joint Disease Post-Op Diagnosis: Right Hip Degenerative Joint Disease I personally identified the patient: Yes Procedure Operation Date: 05/08/19 07:15 Actual Procedures p Right Total Hip Arthroplasty(Right) - Lázaro Torres MD Surgeon Lázaro Torres MD Last Inserter Magdy, PAC Estimated Blood Loss 200 Findings Consistent with Post-Op Diagnosis Fluids 1400 cc Specimens Specimen Description: A. Right Femoral Head Drains Regan Catheter Anesthesia Type Spinal MAC Complications none Disposition Accompanied Patient To Recovery: Yes Disposition: Recovery Room
--- NOTE | 2019-05-08 09:23 | Anesthesiology Progress Note ---
Date of Service May 08, 2019 Anesthesia Post Procedure Vital Signs Vital Signs: Temp Pulse Pulse Resp BP Pulse Ox 05/08/19 08:59 36.2 C L 79 16 118/60 98 05/08/19 05:52 36.6 C 70 20 149/87 H 94 Pain Intensity Right Hip: Pain Intensity: 0 Transfer of Care Handoff Completed per policy Notes Mental Status: alert / awake / arousable and participated in evaluation Patient Amnestic to Procedure: Yes Nausea / Vomiting: adequately controlled Pain: adequately controlled Airway Patency, RR, SpO2: stable & adequate BP & HR: stable & adequate Hydration State: stable & adequate Anesthetic Complications: no major complications apparent and Pt Satisfied with anesthetic care
--- NOTE | 2019-05-08 09:33 | XRay Report ---
XR hip 1V RT w pelvis CLINICAL HISTORY: Hip arthroplasty POSTOP STUDY COMPARISON: 03/13/2019 DISCUSSION: Again evident is a total left hip arthroplasty. Now evident is a total right hip arthropl asty. The femoral and acetabular components appear well seated. There is no dislocation. There is air within the soft tissues consistent with recent surgery. There are overlying skin sushila. IMPRESSION: 1. Interval total right hip arthroplasty. No complicating features identified. Electronically signed by: kD Mcclure M.D. 05/08/2019 9:32 AM
[2019-05-08] MEDS ORDERED: MAGNESIUM HYDROXIDE SUSP 30 ML UDC PO PRN (10:25)
[2019-05-08] MEDS ORDERED: HYDROmorphone INJ 0.5 MG/0.5 ML SYR IV PRN (10:25)
[2019-05-08] MEDS ORDERED: bisacodyL 10 MG SUPP PR PRN (10:25)
[2019-05-08] MEDS ORDERED: NON-FORMULARY MEDICATION (Biotin 2,500 MCG) PO SCH (10:25)
[2019-05-08] MEDS ORDERED: TRAMADOL HCL 50 MG TABLET PO PRN (10:25)
[2019-05-08] MEDS ORDERED: HYDROCORTISONE HC 2.5% CRM 30GM TUBE EXT PRN (10:25)
[2019-05-08] MEDS ORDERED: TAMSULOSIN HCL 0.4 MG CAP PO PRN (10:25)
[2019-05-08] MEDS ORDERED: METOCLOPRAMIDE HCL INJ 5 MG/ML 2 ML VIAL IV PRN (10:25)
[2019-05-08] MEDS ORDERED: NALOXONE HCL 0.4 MG/1 ML VIAL/CARP IV PRN (10:25)
[2019-05-08] MEDS ORDERED: ALUMINUM/MAGNESIUM SUSP 30 ML UDC PO PRN (10:25)
--- NOTE | 2019-05-08 10:27 | Operative Report ---
DATE OF OPERATION: 05/08/2019 SURGEON: Lázaro Torres MD. PEDIATRIC DENTAL HYGIENIST: ROSALIO Titus. PREOPERATIVE DIAGNOSIS: Right hip degenerative joint disease. POSTOPERATIVE DIAGNOSIS: Right hip degenerative joint disease. PROCEDURE PERFORMED: Right uncemented ceramic on highly cross-linked polyethylene total hip arthroplasty. COMPLICATIONS: None. ESTIMATED BLOOD LOSS: 200 mL. FLUID REPLACEMENT: 1400 mL of crystalloid fluid replacement. ANESTHESIA: Spinal. DRAINS: None. SPECIMENS: Right femoral head sent for pathology. OPERATIVE INDICATIONS: The patient is a 78-year-old gentleman who has had a long history of bilateral hip pain and discomfort. He underwent a left hip replacement 2 months ago and has done remarkably well from this. He continued to be limited by his right hip pain. He has failed all conservative care. X-rays showed advanced hip arthritis and he elected to proceed with total hip arthroplasty. OPERATIVE FINDINGS: Operative findings revealed advanced right hip DJD. Extensive grade 4 [id number] disease of the femoral head and acetabulum. Moderate sized joint effusion. Large anterior acetabular osteophyte. OPERATIVE IMPLANTS: Operative implants consisted of: 1. Biomet G7 size 54 mm acetabular shell. 2. A 6.5 cancellous acetabular screws, 1 at 35 mm in length, 1 at 20 mm length. 3. An apex hole eliminator. 4. A highly cross-linked polyethylene liner with 54 mm outer diameter, 36 mm inner diameter with a taylor placed inferior and posterior. 5. DePuy Corail size 10 KLA femoral stem. 6. A +5/36 mm ceramic articular ball. OPERATIVE PROCEDURE: The patient was taken to the Operating Room, identified and placed on the operating table in supine position. All contact areas were appropriately padded. IV antibiotics provided by Anesthesia team. Spinal anesthetic had been implemented in the holding area. Regan catheter was placed in sterile fashion. The patient was then placed in the left lateral decubitus position. An axillary roll was placed. [facility] hip positioner was used for positioning. Right hip and leg were then prepped and draped in usual sterile fashion. A posterolateral approach to the right hip was then performed through a curvilinear incision centered over the greater trochanter. Sharp dissection was carried through subcutaneous tissue down to the level of the IT band and gluteal fascia. The IT band and gluteal fascia was incised longitudinally in line with skin incision. The greater trochanteric bursa was excised. The piriformis and external rotators were tagged and taken off the posterior aspect of the hip joint capsule. Great care was taken throughout the procedure to protect the sciatic nerve at all times. Hip was internally rotated and dislocated. Femoral neck osteotomy cut was then made with the final cut about 12 mm above the lesser trochanter, which was similar to the opposite side. The femur was retracted anteriorly. Attention was then drawn to the acetabulum. The acetabular labrum was excised. The pulvinar fat was excised. Sequential reaming of the acetabulum was then performed beginning with a size 45 and progressing up to 53. A 54 mm Biomet G7 acetabular shell was then placed in about 40 degrees of lateral opening and 20 degrees of anteversion. It was fixed with two 6.5 cancellous acetabular screws. A trial liner was placed and the anterior osteophyte was removed. Attention was then drawn to the femur. The proximal femur was entered with a cookie cutter followed by canal finder. I then broached beginning with a size 8 and progressed to a 10. We got good fit with 10. The calcar reamer was used to smoothen off the calcar. I then trialed the hip. The hip soft tissue tension seemed appropriate with the +5 head. Maybe just a little bit of laxity, but I did not really want to lengthen him. This is similar to the opposite side. The hip was fully stable in full extension and external rotation and flexion to 90 degrees, internal rotation to about [address] a lip inferior and posterior on the acetabular component to maximize stability in flexion. We elected to place these implants. All trial implants were removed. An apex hole eliminator was placed. Highly cross-linked polyethylene liner with a taylor placed inferior and posterior was placed. A [employer] Corail size 10 KLA femoral stem was impacted in position. A +5/36 mm ceramic articular ball was placed. Hip was located and once again found to be stable. Attention was then drawn toward closing. The wound was irrigated with copious amounts of pulsatile lavage solution. I did inject locally with 60 mL of 0.5% Marcaine with epinephrine. The posterior capsule and external rotators were then repaired through drill holes in the posterior trochanter with #2 Ti-Cron suture. The IT band and gluteal fascia were then closed with #1 PDS suture in running fashion. The subcutaneous tissues were then closed in 2 layers, the deep layer #1 Vicryl suture and subcutaneous tissue with 2-0 Dexon suture in a buried interrupted fashion. Skin was closed with skin sushila. Leg was then cleaned, dried and a sterile dressing of Xeroform, 4 x 4's, ABD pad and foam tape was applied. The patient then transferred to the Recovery Room in stable condition. The patient tolerated the procedure well with no complication. All needle and sponge counts were correct at the end of the operation. I attest to the content of the Intraoperative Record and any orders documented therein. Any exception s are noted below.
[2019-05-08] MEDS: CHOLECALCIFEROL 1,000 UNITS TAB PO SCH (11:22)
[2019-05-08] MEDS: MULTIVITAMIN TAB PO SCH (11:23)
[2019-05-08] MEDS: ASPIRIN 81 MG ECTAB PO SCH ×2 (11:23→20:47)
[2019-05-08] MEDS: LOSARTAN POTASSIUM 50 MG TAB PO SCH (11:23)
[2019-05-08] MEDS: VITAMIN B COMPLEX TAB PO SCH (11:23)
[2019-05-08] MEDS: DOCUSATE SODIUM 100 MG CAP PO SCH ×2 (11:28→20:50)
[2019-05-08] MEDS: CYANOCOBALAMIN 500 MCG TABLET (VITAMIN B-12) PO SCH (12:33)
[2019-05-08] MEDS: SODIUM CHLORIDE 0.9% 1000ML 1,000 ML IV SCH ×2 (12:34→21:45)
[2019-05-08] MEDS: KETOROLAC TROMETHAMINE 15 MG/ML VIAL IV SCH ×2 (12:34→18:19)
[2019-05-08] MEDS: ACETAMINOPHEN 500 MG TAB PO SCH ×2 (13:46→22:18)
[2019-05-08] MEDS: CEFAZOLIN 2000MG 2,000 MG/15 ML SYR IV SCH ×2 (14:44→22:18)
[2019-05-08] MEDS ORDERED: TRANEXAMIC ACID 1,000 MG in 0.9 % SODIUM CHLORIDE 100 ML IV SCH (14:57)
--- NOTE | 2019-05-08 17:46 | Progress Note ---
DATE: 05/08/2019 SUBJECTIVE: A 78-year-old gentleman postop from a right hip replacement. He is doing pretty well. Not having any pain yet. No chest pain or shortness of breath. Not feeling dizzy or lightheaded. OBJECTIVE: VITAL SIGNS: Temperature 36.4. Vital signs stable. GENERAL: Shows a healthy, pleasant, middle-aged male. He is sitting up in bed and talking to his . He looks comfortable. LUNGS: Clear to auscultation. HEART: Regular rate and rhythm. ABDOMEN: Soft, nontender, nondistended. EXTREMITIES: Grossly neurovascularly intact except as follows: Examination of the right hip and leg reveals the patient is lying in bed and looks comfortable. Leg lengths are equal. Dressing is clean, dry and intact. Thigh is soft and supple. He is neurologically intact. He can dorsiflex and plantarflex his foot appropriately. X-RAYS: X-ray of the right hip from recovery room reviewed. It shows right uncemented total hip replacement. Components looked to be in good position. No signs of problems. ASSESSMENT: A 78-year-old white male postop from a right hip replacement, doing well. Pain is controlled. Hip is located. He is neurologically intact. PLAN: 1. DVT prophylaxis including thigh-high TEDs, SCDs, and aspirin twice a day. 2. PT/OT. Weight bear as tolerated. Right total hip protocol. 3. Pain control, doing pretty well with current pain regimen. 4. IV antibiotics x24 hours. 5. Disposition: Plan to discharge to home likely with some home health once adequately recovered.
[2019-05-08] MEDS: FERROUS GLUCONATE 324 MG TAB PO SCH (18:19)
[2019-05-08] MEDS: LOSARTAN POTASSIUM 25 MG TAB PO SCH (18:27)
[2019-05-08] MEDS: SENNA 8.6 MG TAB PO SCH (20:47)
[2019-05-08] MEDS: LATANOPROST 0.005% OP SOLN 2.5 ML BTL OP SCH (22:18)
[2019-05-09] MEDS: KETOROLAC TROMETHAMINE 15 MG/ML VIAL IV SCH ×5 (00:04→23:33)
[2019-05-09 05:34] LABS: Eosinophils # (auto) 0.04 K/uL (0-0.5); Eosinophils % (auto) 0.5 %; Hematocrit (blood only) 32.1 % (42-52); Hemoglobin 10.9 g/dL (14.0-18.0); Immature Granulocytes # (auto) 0.02 K/uL (0.00-0.02); Immature Granulocytes % (auto) 0.3 %; Lymphocytes # (auto) 1.25 K/uL (1.2-3.4); Lymphocytes % (auto) 16.4 %; Mean Corpuscular Hemoglobin 31.3 pg (25-34); Mean Corpuscular Volume 92.2 fL (80-100); Mean Platelet Volume 9.5 fL (7.4-10.4); Monocytes # (auto) 1.04 K/uL (0.11-0.59); Monocytes % (auto) 13.7 %; Neutrophils # (auto) 5.25 K/uL (1.4-6.5); Neutrophils % (auto) 69.1 %; Platelet Count 129 K/uL (130-400); RDW Coefficient of Variation 13.1 % (11.5-14.5); RDW Standard Deviation 44.1 fL (36.4-46.3); Red Blood Count 3.48 M/uL (4.7-6.1)
[2019-05-09 06:02] LABS: BUN Creatinine Ratio 20.4 (10-20); Calcium 8.8 mg/dl (8.5-10.1); Creatinine Clr Calc Pharmacy 81.4 ml/min; Est GFR (African American) 96.7; Est GFR (Non-African American) 83.4
[2019-05-09] MEDS: ACETAMINOPHEN 500 MG TAB PO SCH ×3 (06:02→21:44)
--- NOTE | 2019-05-09 07:38 | Progress Note ---
DATE: 05/09/2019 SUBJECTIVE: A 78-year-old gentleman postop day 1 from right hip replacement. He is doing well. Had a pretty good night. No chest pain or shortness of breath. Pain is controlled. Not feeling dizzy or lightheaded. OBJECTIVE: VITAL SIGNS: Temperature 36.7. Vital signs stable. GENERAL: Physical examination shows a pleasant, middle-aged male. He is lying in bed and looks pretty comfortable. EXTREMITIES: Examination of the right hip reveals the leg lengths to be equal. Dressing is clean, dry and intact. Thigh is soft and supple. He is neurologically intact. LABORATORY DATA: Hemoglobin 10.9. Hematocrit 32.1. Electrolytes are stable. ASSESSMENT: A 78-year-old gentleman postop day 1 from right hip replacement, doing pretty well. Pain is controlled. His hip is located. He is neurologically intact. PLAN: 1. DVT prophylaxis including thigh-high TEDs, SCDs, and aspirin twice a day. 2. PT/OT. Weight bear as tolerated. Right total hip protocol. 3. Pain control, doing pretty well with current pain regimen. 4. Disposition: Plan to discharge to home with some home health once adequately recovered and medically stable.
--- NOTE | 2019-05-09 08:23 | Anesthesiology Progress Note ---
Date of Service May 09, 2019 Anesthesia Post Procedure Vital Signs Vital Signs: Temp Pulse Pulse Pulse Resp BP Pulse Ox 05/09/19 07:08 36.7 C 72 17 115/66 92 05/09/19 03:23 36.3 C L 67 18 112/66 95 05/08/19 23:07 36.6 C 73 16 111/61 91 05/08/19 20:12 36.6 C 78 17 128/64 95 05/08/19 18:26 79 121/63 05/08/19 15:20 36.4 C L 76 17 113/59 L 94 05/08/19 13:41 78 18 132/70 90 05/08/19 12:21 78 18 137/73 94 05/08/19 10:57 67 18 144/76 H 95 05/08/19 10:25 36.3 C L 68 18 122/65 94 05/08/19 09:55 36.4 C L 71 18 117/68 95 05/08/19 09:45 36.3 C L 69 12 120/62 97 05/08/19 09:25 70 14 122/58 L 92 05/08/19 09:15 74 18 128/58 L 91 05/08/19 09:05 74 14 127/60 98 05/08/19 08:59 36.2 C L 79 16 118/60 98 Pain Intensity Right Hip: Pain Intensity: 2 Notes Mental Status: alert / awake / arousable and participated in evaluation Patient Amnestic to Procedure: Yes Nausea / Vomiting: adequately controlled Pain: adequately controlled Airway Patency, RR, SpO2: stable & adequate BP & HR: stable & adequate Hydration State: stable & adequate Neuraxial Anesthesia: was administered and sensory block resolved Anesthetic Complications: no major complications apparent
[2019-05-09] MEDS: LOSARTAN POTASSIUM 50 MG TAB PO SCH (08:46)
[2019-05-09] MEDS: MULTIVITAMIN TAB PO SCH (08:46)
[2019-05-09] MEDS: ASPIRIN 81 MG ECTAB PO SCH ×2 (08:46→20:41)
[2019-05-09] MEDS: VITAMIN B COMPLEX TAB PO SCH (08:46)
[2019-05-09] MEDS: FERROUS GLUCONATE 324 MG TAB PO SCH ×2 (08:46→17:55)
[2019-05-09] MEDS: CHOLECALCIFEROL 1,000 UNITS TAB PO SCH (08:47)
[2019-05-09] MEDS: CYANOCOBALAMIN 500 MCG TABLET (VITAMIN B-12) PO SCH (08:47)
[2019-05-09] MEDS: DOCUSATE SODIUM 100 MG CAP PO SCH ×2 (08:50→20:44)
[2019-05-09] MEDS: LOSARTAN POTASSIUM 25 MG TAB PO SCH (17:57)
[2019-05-09] MEDS: LATANOPROST 0.005% OP SOLN 2.5 ML BTL OP SCH (20:40)
[2019-05-09] MEDS: SENNA 8.6 MG TAB PO SCH (20:41)
[2019-05-10] MEDS: ACETAMINOPHEN 500 MG TAB PO SCH (06:10)
[2019-05-10] MEDS: KETOROLAC TROMETHAMINE 15 MG/ML VIAL IV SCH (06:11)
--- NOTE | 2019-05-10 07:45 | Progress Note ---
DATE: 05/10/2019 SUBJECTIVE: A 78-year-old gentleman postop day 2 from right hip replacement. He is doing well. Pain is controlled. Therapy went pretty well. No chest pain or shortness of breath. Not feeling dizzy or lightheaded. OBJECTIVE: VITAL SIGNS: Temperature 36.6. Vital signs stable. GENERAL: Shows a pleasant, middle-aged male. He is sitting up in his bedside chair, looks quite comfortable. EXTREMITIES: Examination of the right hip reveals dressing to be clean, dry and intact. Leg lengths are equal. Thigh is soft and supple. He is neurologically intact. ASSESSMENT: A 78-year-old gentleman postoperative day 2 from right hip replacement, doing well. Pain is controlled. He is neurologically intact. Hip is located. PLAN: 1. DVT prophylaxis including thigh-high TEDs, SCDs, and aspirin twice a day. 2. PT/OT. Weight bear as tolerated. Right total hip protocol. 3. Pain control, doing pretty well with current pain regimen. 4. Disposition: Plan to discharge to home with some home health later today.
[2019-05-10] MEDS: FERROUS GLUCONATE 324 MG TAB PO SCH (08:35)
[2019-05-10] MEDS: MULTIVITAMIN TAB PO SCH (08:36)
[2019-05-10] MEDS: ASPIRIN 81 MG ECTAB PO SCH (08:36)
[2019-05-10] MEDS: VITAMIN B COMPLEX TAB PO SCH (08:36)
[2019-05-10] MEDS: LOSARTAN POTASSIUM 50 MG TAB PO SCH (08:36)
[2019-05-10] MEDS: CHOLECALCIFEROL 1,000 UNITS TAB PO SCH (08:37)
[2019-05-10] MEDS: CYANOCOBALAMIN 500 MCG TABLET (VITAMIN B-12) PO SCH (08:38)
[2019-05-10] MEDS: DOCUSATE SODIUM 100 MG CAP PO SCH (08:40)
--- NOTE | 2019-05-14 22:49 | Discharge Summary ---
ADMITTING PHYSICIAN AND SURGEON: Dr. Lázaro Torres. ADMITTING DIAGNOSIS: Right hip degenerative joint disease. SURGERY PERFORMED: Right total hip arthroplasty. SECONDARY DIAGNOSES: Hypertension, hemochromatosis, lumbar disc disease. CONSULTS: None obtained. HISTORY AND PHYSICAL EXAMINATION: Well documented in the patient's chart. HOSPITAL COURSE: The patient was admitted on 05/08/2019, underwent total hip arthroplasty, tolerated the procedure well. There were no complications. He was transferred to the PACU postoperatively and later to the orthopedic floor for further care. He was given Ancef for antibiotic prophylaxis, EMILIANA stockings, SCDs and aspirin for DVT prophylaxis. Hemoglobin, hematocrit and vital signs were monitored during his hospital stay and remained stable, did not require any blood transfusions. There were no complications. By postoperative day 2, he was tolerating a regular diet, pain was controlled with oral pain medicine. He was participating in physical therapy. By postop day 2, he was discharged home, set up with home health services. He was given printed discharge instructions as well as new prescriptions for extra strength Tylenol, aspirin and tramadol. Continue his home medicines. Continue physical therapy, weightbearing as tolerated, EMILIANA stockings, total hip precautions. Follow up approximately 2 weeks postop or sooner if there are any problems or concerns.
== END 2019-05-10 10:04 | disposition home health service (06) | DRG 470 ==
LOC: ASU 05:00 → 3E 08:59

== ENCOUNTER 2020-01-04 16:17 | Observation (INO) ==
--- NOTE | 2020-01-04 17:13 | CT Scan Report ---
CT SCAN OF THE BRAIN WITHOUT IV CONTRAST CLINICAL HISTORY: Fall. COMPARISON STUDY: CT of the brain dated 07/18/2019. TECHNIQUE: Unenhanced axial CT scan of the brain is performed from the vertex to the skull base. A do se lowering technique was utilized adhering to the principles of ALARA. FINDINGS: Brain parenchyma: There are age-related involutional changes noting minimal subcortical and perivent ricular microangiopathic change. There is no hemorrhage, mass effect, or evidence of acute territoria l ischemia by CT criteria. Lorenzo-white matter differentiation is preserved. No extra-axial fluid colle ction is seen. Ventricles, sulci, cisterns: Prominent secondary to involutional change. Intracranial vasculature: There is atherosclerotic calcification of the cavernous carotid and vertebr al arteries. Calvarium: The skeletal structures are osteopenic. No depressed calvarial fracture is identified. Soft tissues: There is a left frontal scalp hematoma. Sinuses and mastoids: The visualized paranasal sinuses are clear. The mastoid air cells are well pneu matized. Orbits: The bony orbits are grossly intact. IMPRESSION: There is no hemorrhage, mass effect, or evidence of acute territorial ischemia by CT yinka cutler. ACT 112: Negative or not required by law. Electronically signed by: Manny Real M.D. 01/04/2020 5:11 PM
--- NOTE | 2020-01-04 17:17 | CT Scan Report ---
CT SCAN OF THE CERVICAL SPINE CLINICAL HISTORY: Trauma. Fall. COMPARISON STUDY: CT of the cervical spine dated 07/18/2019. TECHNIQUE: CT scan of the cervical spine is performed from the skull base to the upper thoracic spine . Images are reviewed in the axial, sagittal, and coronal planes. IV contrast was not administered fo r this examination. A dose lowering technique was utilized adhering to the principles of ALARA. CT DOSE: 1316.09 mGy.cm FINDINGS: Skeletal structures: The skeletal structures are osteopenic. There is no evidence of fracture or subl uxation involving the cervical spine. Vertebral body height and alignment are maintained. There is st raightening of the cervical lordosis. Anterior osteophytes are seen throughout. The odontoid process and lateral masses are intact. The atlantoaxial articulation is preserved noting advanced productive degenerative change. The spinous processes appear intact. There is moderate to advanced multilevel ce rvical spondylosis. Uncovertebral and facet arthropathy contribute to neural foraminal stenosis at mo st levels. Intervertebral discs: Moderate disc space narrowing is noted at C6-C7. Only mild disc space narrowing is seen at the remaining cervical levels. Central canal: Posterior disc osteophyte complexes at C4-C5, C5-C6, and C6-C7 likely contribute to mi ld multilevel acquired compromise of the central canal. Soft tissues: The prevertebral and paraspinous soft tissues are within normal limits. Calvarium: The visualized calvarium at the skull base appears intact. Brain parenchyma: Partially visualized brain parenchyma the skull base is within normal limits. Sinuses and mastoids: The visualized paranasal sinuses are clear. The mastoid air cells are well pneu matized. Lung apices: Clear as visualized. IMPRESSION: 1. There is no evidence of fracture or subluxation involving the cervical spine. 2. Osteopenia and spondylotic change as above. ACT 112: Negative or not required by law. Electronically signed by: Manny Real M.D. 01/04/2020 5:15 PM
--- NOTE | 2020-01-04 17:25 | Emergency Department Note ---
Impression & Plan Syncope, Laceration, Contusion, Fall, Abnormal ECG ED Provider Note NAME: MARCO ANTONIO MONTENEGRO AGE: 79 SEX: M : 1940 ARRIVES VIA: Ambulance INFORMANT: Patient ED PROVIDER(S): Pop Goldberg DO CHIEF COMPLAINT: Fall HPI: Patient is a 79-year-old male who presents the ER following a fall while walking up steps. He does not remember what caused the fall. He does remember falling towards the ground because last thing he remembers. He does not believe he tripped. He does not believe he was feeling dizzy or lightheaded. He has no chest pain or shortness of breath. Complains of a left-sided headache. He also complains of left arm pain. He notes pain is worse with movement of his left upper extremity. He denies taking any blood thinners with the exception of aspirin. He denies any weakness or numbness in his arms or legs. ROS: See above HPI for pertinent positives & negatives. A total of 10 systems reviewed and were otherwise negative. PAST MEDICAL HISTORY:See Below PAST SURGICAL HISTORY:See Below FAMILY HISTORY:See Below SOCIAL HISTORY:See Below HOME MEDICATIONS:See Below ALLERGIES:See Below VITALS:See Below PHYSICAL EXAMINATION: GENERAL: alert, well appearing, well nourished, no distress, non-toxic HEAD: normal cephalic, sick centimeter laceration to the left parietal region with venous oozing EYE EXAM: normal conjunctiva, PERRL and EOM's grossly intact OROPHARYNX: no exudate, no erythema, lips, buccal mucosa, and tongue normal and mucous membranes are moist NECK: supple, no nuchal rigidity, no adenopathy, non-tender CHEST: stable to compression anteriorly and posteriorly LUNGS: clear to auscultation. Normal chest wall mechanics HEART: no murmurs, S1 normal and S2 normal ABDOMEN: abdomen soft, non-tender, normo-active bowel sounds, no masses, no rebound or guarding. PELVIS: stable to compression anteriorly and posteriorly BACK: Back is symmetrical on inspection and there is no deformity, no midline tenderness, no CVA tenderness. UPPER EXTREMITIES: Tenderness in the left elbow and left humerus. Skin is intact with the exception dorsal aspect of the left hand. 6 cm laceration to the dorsal aspect of the left hand. Grasp along with abduction and flexion extension of the digits are intact. Radial pulse 2 out of 4. LOWER EXTREMITIES: Full active and passive range of motion of bilateral lower extremities. Abrasions over bilateral knees. Minimal tenderness on palpation of left knee. DPs are 2 out of 4. NEURO EXAM: Normal sensorium, cranial nerves II-XII grossly intact, normal speech, no gross weakness of arms, no gross weakness of legs. GCS: 15. MEDICAL DECISION MAKING: Patient is a 79-year-old male that presents the ER following falling and loss of loss of consciousness for about 2 minutes. He has 2 lacerations one on his left hand on the dorsal aspect and one on the left side of his head. These were repaired by myself at bedside. His tetanus was up-to-date within the past 5 years. He is truly uncertain on how he fell. This in combination with his initial EKG which had a fair amount of ectopy may be concerned that this could have been possibly cardiac. IV was established blood work was obtained. CTs of the head and neck as well as multiple x-rays showed no acute fractures. Labs show no significant leukocytosis or anemia. INR was unremarkable. BMP was slightly elevated glucose. LFTs bilirubin troponin was unremarkable. Patient was updated bedside. He was agreeable with staying for tonight. Triage Nursing notes reviewed. Prior medical records reviewed Vital Signs: reviewed and remarkable for no significant abnormalities Differential diagnosis: Differential diagnoses include major intracranial, cervical, spinal, thoracic, abdominal, pelvic and neurologic injury. Fracture, contusion, sprain, strain, laceration, abrasions included as well. ER treatment provided: See below Diagnostics interpreted by me: ECG: Sinus rhythm rate of 77 PVCs PACs, normal QTC Normal axis Cardiac Monitoring: An order was placed for continuous cardiac monitoring. The monitor shows a rate of 71 with sinus rhythm. Laboratory studies: As stated above and show below. Imaging studies: CT of the head and cervical spine show no acute fractures or bleeds. Chest x- ray along with elbow wrist hand and knee show no acute fractures. Consultation(s): Discussed with Dr. Evelyn Gan for observation. ED COURSE: Procedures: Laceration repair #1 Laceration repair of left head parietal region: Wound measured 6cm. Lidocaine was infiltrated into the wound margins to provide local anesthesia. The wound was inspected for foreign bodies, tendon, artery and bone or joint involvement and none was found. The wound was irrigated with saline and closed with 8 sushila and a clean dressing was applied. The patient tolerated the procedure well. Laceration #2: Laceration repair of dorsal aspect of left hand: Wound measured 7cm. Lidocaine was infiltrated into the wound margins to provide local anesthesia. The wound was inspected for foreign bodies, tendon, artery and bone or joint involvement and none was found. The wound was irrigated with saline and closed with 4.0 suture(s) using 8 nylon sutures and a clean dressing was applied. The patient tolerated the procedure well. Critical Care: None Past Med/Surg History Medical History (Updated 01/04/20 @ 22:02 by Pop Goldberg DO) Aortic stenosis, moderate Per 03/06/19 echo pg 18mmHg Heart murmur Moderate . Hemochromatosis SEES [facility] History of skin cancer Several lesions removed, many benign. 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 Lázaro Torres left uncemented History of colonoscopy Hx of tonsillectomy Hx of wisdom tooth extraction S/P total hip arthroplasty 05/08/19 Dr. Lázaro Torres- Right uncemented ceramic on highly cross-linked polyethylene total hip arthroplasty Social History Preferred Language: Palauan Communication Ability: Effective Personal Care Service Provider Required: No Beliefs That Will Affect Care: None marital status: Current Living Situation: Spouse current occupational status: retired Feels Safe at Home: Yes Safety Concerns: Feels Safe At This Time Smoking Status: Former smoker Tobacco Type: cigarettes ; Age Started Using Tobacco: 17 ; Age Quit Using Tobacco: 52 ; packs per day: 1 ; Second Hand Exposure: No ; Hx Alcohol Use: Yes Alcohol type: beer Alcohol Intake Frequency: Rarely Hx Substance Use: No Childhood Exposure to Second-Hand Smoke: Yes Dental Care, Regularly: Yes Physical Activity Frequency: 3-4 Times per Week Seatbelt Use: always Sunscreen Use: Yes Allergies Allergies Allergy/AdvReac Type Severity Reaction Status Date / Time No Known Allergies Allergy Verified 01/04/20 17:21 Home Meds Home Medications Medication Instructions Recorded Confirmed B-complex with vitamin C [Super B 1 tab PO QAM 02/20/19 01/04/20 Complex-Vitamin C] Lumify 1 drp OPB DAILY PRN 02/20/19 01/04/20 cholecalciferol (vitamin D3) 2,000 unit PO QAM 02/20/19 01/04/20 [Vitamin D3] diphenhydramine HCl [Unisom 50 mg PO HS PRN 02/20/19 01/04/20 SleepGels] hydrocortisone [Proctosol HC] 1 applic MN BID PRN 02/20/19 01/04/20 latanoprost 1 drp OPB PM 02/20/19 01/04/20 aspirin [Aspirin Low Dose] 81 mg PO DAILY 07/18/19 01/04/20 calcium carbonate-vitamin D3 1 tab PO DAILY 01/04/20 01/04/20 [Calcium 500 + D] Previous Rx's Medication Instructions Recorded losartan 25 mg tablet 25 mg PO HS #90 tab 06/25/19 losartan 50 mg tablet 50 mg PO DAILY #90 tab 06/25/19 Results & Data (ED) Vital Signs Vital Signs - 24 hr 01/04/20 16:17 01/04/20 16:27 01/04/20 16:31 Temperature 36.5 C Temperature Source Oral Pulse Rate 82 69 Pulse Rate from SpO2 Sensor 64 Respiratory Rate 20 22 Respiratory Effort / Characteristics Non-Labored Respiratory Depth Normal Blood Pressure 147/83 H Blood Pressure Mean 104 Pulse Oximetry 92 92 91 Oxygen Delivery Method Room Air Room Air Room Air Sepsis Recent Fever Within 48 Hours No Sepsis Action Taken by Nursing No Action Required 01/04/20 16:32 01/04/20 16:40 01/04/20 16:50 Temperature Temperature Source Pulse Rate 68 72 66 Pulse Rate from SpO2 Sensor 67 71 67 Respiratory Rate 17 20 22 Respiratory Effort / Characteristics Respiratory Depth Blood Pressure 148/69 H Blood Pressure Mean 105 Pulse Oximetry 90 90 Oxygen Delivery Method Room Air Room Air Room Air Sepsis Recent Fever Within 48 Hours Sepsis Action Taken by Nursing 01/04/20 17:11 01/04/20 17:20 01/04/20 17:30 Temperature Temperature Source Pulse Rate 66 70 74 Pulse Rate from SpO2 Sensor Respiratory Rate 22 22 15 Respiratory Effort / Characteristics Respiratory Depth Blood Pressure 149/63 H Blood Pressure Mean 114 Pulse Oximetry Oxygen Delivery Method Room Air Room Air Room Air Sepsis Recent Fever Within 48 Hours Sepsis Action Taken by Nursing 01/04/20 17:31 01/04/20 17:40 01/04/20 17:50 Temperature Temperature Source Pulse Rate 68 73 67 Pulse Rate from SpO2 Sensor Respiratory Rate 20 21 22 Respiratory Effort / Characteristics Respiratory Depth Blood Pressure Blood Pressure Mean Pulse Oximetry Oxygen Delivery Method Room Air Room Air Room Air Sepsis Recent Fever Within 48 Hours Sepsis Action Taken by Nursing 01/04/20 18:00 01/04/20 18:10 01/04/20 19:10 Temperature Temperature Source Pulse Rate 66 63 65 Pulse Rate from SpO2 Sensor Respiratory Rate 17 31 H 20 Respiratory Effort / Characteristics Respiratory Depth Blood Pressure 139/66 Blood Pressure Mean 85 Pulse Oximetry Oxygen Delivery Method Room Air Room Air Sepsis Recent Fever Within 48 Hours Sepsis Action Taken by Nursing 01/04/20 20:09 Temperature Temperature Source Pulse Rate Pulse Rate from SpO2 Sensor 60 Respiratory Rate Respiratory Effort / Characteristics Respiratory Depth Blood Pressure 120/80 Blood Pressure Mean 93 Pulse Oximetry 94 Oxygen Delivery Method Room Air Sepsis Recent Fever Within 48 Hours Sepsis Action Taken by Nursing Laboratory Data Result diagrams: 01/04/20 17:26 01/04/20 17:26 Lab Results 01/04/20 01/04/20 01/04/20 Range/Units 17:26 17:26 17:26 WBC 8.31 (4.8-10.8) K/uL RBC 4.68 L (4.7-6.1) M/uL Hgb 15.0 (14.0-18.0) g/dL Hct 43.6 (42-52) % MCV 93.2 (80-100) fL MCH 32.1 (25-34) pg MCHC 34.4 (32-36) g/dL RDW Std Deviation 44.4 (36.4-46.3) fL RDW Coeff of Darin 13.1 (11.5-14.5) % Plt Count 149 (130-400) K/uL MPV 10.0 (7.4-10.4) fL Immature Gran % (Auto) 0.4 % Neut % (Auto) 75.6 % Lymph % (Auto) 14.1 % [place] % (Auto) 7.8 % Eos % (Auto) 1.6 % Baso % (Auto) 0.5 % Immature Gran # (Auto) 0.03 H (0.00-0.02) K/uL Neut # (Auto) 6.29 (1.4-6.5) K/uL Lymph # (Auto) 1.17 L (1.2-3.4) K/uL [place] # (Auto) 0.65 H (0.11-0.59) K/uL Eos # (Auto) 0.13 (0-0.5) K/uL Baso # (Auto) 0.04 (0-0.2) K/uL PT 10.9 (9.0-12.0) Seconds INR 1.0 (0.9-1.1) Sodium 140 (136-145) mmol/L Potassium 3.5 (3.5-5.1) mmol/L Chloride 106 (98-107) mmol/L Carbon Dioxide 27 (21-32) mmol/L Anion Gap 6.0 (3-11) BUN 21 H (7-18) mg/dl Creatinine 0.91 (0.6-1.4) mg/dl Est Cr Clr Drug Dosing 79.8 ml/min Est GFR ( Amer) 93.9 Est GFR (Non-Af Amer) 81.0 BUN/Creatinine Ratio 23.4 H (10-20) Glucose 121 H (70-99) mg/dl Calcium 9.8 (8.5-10.1) mg/dl Magnesium 2.4 (1.8-2.4) mg/dl Total Bilirubin 1.5 H (0.2-1) mg/dl AST 14 L (15-37) U/L ALT 28 (12-78) U/L Alkaline Phosphatase 70 (45-117) U/L Total Creatine Kinase 90 (39-308) U/L Troponin I < 0.015 (0-0.045) ng/ml Total Protein 6.8 (6.4-8.2) gm/dl Albumin 4.0 (3.4-5.0) gm/dl Globulin 2.8 (2.5-4.0) gm/dl Albumin/Globulin Ratio 1.5 (0.9-2) Administered Medications Discontinued Medications Lidocaine/Epinephrine (Xylocaine/Epinephrine 1%) Confirm Administered Dose 20 ml .ROUTE .[employer] ONE Stop: 01/04/20 18:08 Last Admin: 01/04/20 18:17 Dose: 20 ml Documented by: [id number] Discharge Plan Visit Data *Final* Discharge Date/Time: 01/04/20 21:10 Chief Complaint: Fall ED Provider: Pop Goldberg Discharge Problem: Syncope, Laceration, Contusion, Fall, Abnormal ECG Patient Disposition: Admitted As Inpatient Discharge Instructions Interventions: ED Discharge Assessment Last Done: 01/04/20 21:10 Discharge Problem: Syncope Qualifiers: Syncope type: unspecified Qualified Code(s): R55 - Syncope and collapse Contusion Qualifiers: Encounter type: initial encounter Contusion area: wrist Laterality: left Qualified Code(s): S60.212A - Contusion of left wrist, initial encounter Fall Qualifiers: Encounter type: initial encounter Qualified Code(s): W19.XXXA - Unspecified fall, initial encounter
[2020-01-04 17:40] LABS: Basophils # (auto) 0.04 K/uL (0-0.2); Basophils % (auto) 0.5 %; Eosinophils # (auto) 0.13 K/uL (0-0.5); Eosinophils % (auto) 1.6 %; Hematocrit (blood only) 43.6 % (42-52); Immature Granulocytes # (auto) 0.03 K/uL (0.00-0.02); Immature Granulocytes % (auto) 0.4 %; Lymphocytes # (auto) 1.17 K/uL (1.2-3.4); Lymphocytes % (auto) 14.1 %; Mean Corpuscular Hemoglobin 32.1 pg (25-34); Mean Corpuscular Hgb Conc 34.4 g/dL (32-36); Mean Corpuscular Volume 93.2 fL (80-100); Monocytes # (auto) 0.65 K/uL (0.11-0.59); Monocytes % (auto) 7.8 %; Neutrophils # (auto) 6.29 K/uL (1.4-6.5); Neutrophils % (auto) 75.6 %; Platelet Count 149 K/uL (130-400); RDW Coefficient of Variation 13.1 % (11.5-14.5); RDW Standard Deviation 44.4 fL (36.4-46.3); Red Blood Count 4.68 M/uL (4.7-6.1); White Blood Count 8.31 K/uL (4.8-10.8)
[2020-01-04 17:48] LABS: Prothrombin Time 10.9 Seconds (9.0-12.0)
[2020-01-04 17:57] LABS: Alanine Aminotransferase 28 U/L (12-78); Aspartate Aminotransferase 14 U/L (15-37); BUN Creatinine Ratio 23.4 (10-20); Blood Urea Nitrogen 21 mg/dl (7-18); Calcium 9.8 mg/dl (8.5-10.1); Carbon Dioxide 27 mmol/L (21-32); Chloride 106 mmol/L (98-107); Creatinine Clr Calc Pharmacy 79.8 ml/min; Est GFR (African American) 93.9; Glucose 121 mg/dl (70-99); Potassium 3.5 mmol/L (3.5-5.1); Sodium 140 mmol/L (136-145)
[2020-01-04 18:02] LABS: Albumin Globulin Ratio 1.5 (0.9-2); Alkaline Phosphatase 70 U/L (45-117); Bilirubin,Total 1.5 mg/dl (0.2-1); Globulin 2.8 gm/dl (2.5-4.0); Total Protein 6.8 gm/dl (6.4-8.2); Troponin I < 0.015 ng/ml (0-0.045)
[2020-01-04] MEDS ORDERED: LIDOCAINE/EPINEPHRINE 1% 20 ML VIAL ONE (18:07)
--- NOTE | 2020-01-04 18:44 | XRay Report ---
SINGLE VIEW CHEST CLINICAL HISTORY: Fall. FINDINGS: An AP, portable, upright chest radiograph is compared to study dated 02/28/2019. The heart is enlarged noting atherosclerotic calcification of the thoracic aorta. The pulmonary vasculature is no ncongested. There is mild bibasilar atelectasis. No airspace consolidation or large pleural effusion is identified. No pneumothorax is seen. The skeletal structures are osteopenic. The bony thorax is gr ossly intact. IMPRESSION: Cardiomegaly with no acute cardiopulmonary abnormality. ACT 112: Negative or not required by law. Electronically signed by: Manny Real M.D. 01/04/2020 6:42 PM
--- NOTE | 2020-01-04 18:50 | XRay Report ---
LEFT HUMERUS 2 VIEWS CLINICAL HISTORY: Fall with left arm injury. FINDINGS: AP and lateral views of the left humerus are obtained. No prior studies are available for c omparison at the time of dictation. The skeletal structures are osteopenic. There is no radiographic evidence of left humeral fracture. The shoulder and elbow joints are grossly maintained. Productive d egenerative change is noted at the acromioclavicular joint. The overlying soft tissues are normal as imaged. The visualized left lung parenchyma appears clear. IMPRESSION: There is no radiographic evidence of left humeral fracture. Electronically signed by: Manny Real M.D. 01/04/2020 6:49 PM
--- NOTE | 2020-01-04 18:52 | XRay Report ---
LEFT ELBOW 3 VIEWS CLINICAL HISTORY: Fall. Left elbow injury. FINDINGS: 3 views of the left elbow are obtained. No prior studies are available for comparison at th e time of dictation. The skeletal structures are osteopenic. There is no radiographic evidence of lef t elbow fracture. The joint spaces are maintained. There is no joint effusion. Mild spurring is noted at the triceps insertion. The overlying soft tissues are normal as imaged. IMPRESSION: There is no radiographic evidence of left elbow fracture. Electronically signed by: Manny Real M.D. 01/04/2020 6:50 PM
--- NOTE | 2020-01-04 18:53 | XRay Report ---
LEFT WRIST 4 VIEWS CLINICAL HISTORY: Fall with left wrist injury. FINDINGS: 4 views of the left wrist are obtained. No prior studies are available for comparison at th e time of dictation. The skeletal structures are osteopenic. No fracture is identified. Mild degenera tive narrowing is seen at the radiocarpal articulation. Mild to moderate osteoarthritic change is pre sent the first carpometacarpal joint. Mild overlying soft tissue edema is noted. IMPRESSION: Mild soft tissue swelling with no radiographic evidence of left wrist fracture. Electronically signed by: Manny Real M.D. 01/04/2020 6:52 PM
--- NOTE | 2020-01-04 18:54 | XRay Report ---
LEFT KNEE 3 VIEWS CLINICAL HISTORY: Fall with left knee pain. FINDINGS: AP, crosstable lateral, and sunrise views of the left knee are obtained. No prior studies a re available for comparison at the time of dictation. The skeletal structures are osteopenic. No frac ture is identified. Moderate to advanced degenerative narrowing is seen in the medial compartment. Mi ld narrowing is seen at the patellofemoral articulation. There is degenerative beaking of the tibial spine and small marginal osteophytes. There is no significant joint effusion. Mild prepatellar soft t issue swelling is noted. Atherosclerotic calcification is seen in the popliteal artery. IMPRESSION: Mild soft tissue swelling with no radiographic evidence of fracture. Electronically signed by: Manny Real M.D. 01/04/2020 6:53 PM
--- NOTE | 2020-01-04 18:56 | XRay Report ---
LEFT HAND 3 VIEWS CLINICAL HISTORY: Fall with left hand laceration. FINDINGS: 3 views of the left hand are obtained. No prior studies are available for comparison at the time of dictation. The skeletal structures are osteopenic. No fracture is seen. There is mild degene rative narrowing at the radiocarpal articulation. Mild to moderate osteoarthritic change is seen at t he first carpometacarpal joint. Mild osteoarthritic change is seen involving the first metacarpophala ngeal joint and the interphalangeal joints. Mild soft tissue swelling is present around the wrist. No radiodense foreign body is identified. IMPRESSION: No acute bony abnormality is identified. Electronically signed by: Manny Real M.D. 01/04/2020 6:55 PM
[2020-01-04 20:48] LABS: Creatine Kinase 90 U/L (39-308); Magnesium 2.4 mg/dl (1.8-2.4)
--- NOTE | 2020-01-04 21:34 | History & Physical Report ---
Date of Service January 04, 2020 Assessment & Plan (1) Syncope and collapse: Dylan Hinds is a 79 y/o male with past medical history of HTN, Aortic Stenosis, bilateral hip replacements, who presented to [facility] ED via EMS after Syncopal episode with head injury and reported approx 2 minute LOC. Denies prodromal symptoms. His states that he reported syncope prior to fall, but he now is stating that fall was mechanical. Concerning is that he sustained significant injury to head and left side of body with joint contusions, this supports possible syncope as he was unable to protect himself. - Cardiogenic considerations include prior aortic stenosis causing dysrhythmia, or fixed cardiac output on exertion walking to get mail (although he reports no issues with being active daily). - He was noted to not have a normal rhythm on ECG and monitoring at bedside in ED. Will repeat ECG to look for heart block, as sick-sinus syndrome could be cause or perhaps a heart block. - Reported history of Hemochromatosis could cause a diastolic dysfunction or systolic dysfunction via free radical oxygenation. No signs of heart failure at this time. Perhaps iron deposits in myocardium could cause conduction disturbances. Prior EMR reviewed and he doesn't have history of significantly elevated ferritin and perhaps has a mild phenotype of the disease. - Will look for further cardiogenic cause with Cardiology consult for evaluation. - Will order a TTE, trend trops, repeat ECG as above, cardiac monitoring on telemetry. - Could also have had too much caffeine today as reported 4 cups of coffee and one of tea. - Will check a CK as no clear reports of if patient was found down or if this was witnessed. Spouse reports that she heard commotion after fall occurred so it probably wasn't long. - Will check mag as if low will replace, although there was no signs of seizure like activity. For other causes: - will order orthostatics - CT head negative and no focal neuro signs at the moment. - PT/OT eval and treat for possible mechanical causes - Neuro checks with [facility] for head trauma - recommended to avoid Unisom sleepgels as diphenhydramine in the elderly and associated adverse effects, also a possible contributor. Code: Full DVT ppx: SCDs since head trauma will not use chemical ppx FENGI: heart healthy Dispo: Obs - medsurg tele. (2) Aortic valve sclerosis: as above. 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 (4) Essential hypertension: Hold losartan incase of contrast used for echocardiogram. (5) Glaucoma: current with home med Admission and Anticipated Discharge Date Admission Date: 01/04/20 Anticipated date of discharge: 01/06/20 History of Present Illness Chief Complaint: Syncope Primary Care Provider: Agatha Correa MD Dylan Hinds is a 79 y/o male with past medical history of HTN, Aortic Stenosis, bilateral hip replacements, who presented to [facility] ED via EMS after Syncopal episode. Dylan states this occurred around 3-4pm today, about 4.5 hours ago. He notes no prodromal symptoms. He states he was walking from his apartment to a community mailbox that is located in his apartment complex. He thinks that he lost his balance mechanically and tried rotating to fall on his front. However, his spouse reports that he was reporting he did have syncopal event. Regardless, he did have about 2 minutes of loss of consciousness status post fall. He did sustain injury to his head with a laceration and another laceration to his left dorsal hand. He notes that there were two people in the same community mailbox area that witnessed event and reported about 2 minutes LOC. He notes first thing he could remember was ambulance arriving. He denies any prodromal symptoms such as dizziness, shortness of breath, chest pain. He notes he was in his usual state of health up to fall. No recent illnesses. He notes he ate breakfast which consisted of 3 eggs and toast, but did not eat lunch. He notes he drinks heavy amount of coffee daily. He reports drinking approx 4 mugs of coffee today and notes they had a cup of tea together as well. He does state that he drinks water to compensate for his caffeine intake and reports being well hydrated today. He does note taking 2 Unisom sleep gels last night. He notes he had some nausea during EMS transport but with was relieved with medication. He denies any focal weakness or numbness; no slurred speech, no tongue injuries, no bladder or bowel loss. His notes that he is acting at his neuro baseline currently, with perhaps a difference of opinion of reported syncopal event caused by mechanical versus collapse. He notes he does take aspirin daily. He denies alcohol intake. ED workup included complete imaging workup. Patient had a CT Spine which was negative for fracture; CT Head with no bleed, mass effect, acute territorial ischemia; CXR with cardiomegaly without acute process; Left Elbow xray without fracture; Left humerus without fracture; Left wrist mild soft tissue swelling with no fracture; Left knee mild soft tissue swelling with no fracture; Left hand no fracture. His ECG was not normal with noted PVC, quality was poor for adequte evaluation of [place] segments. Here in ED he notes left arm soreness but was unaware of imaging for other injuries. He did have suture repair to his left dorsal hand for laceration as well as sushila placed for his left temporal head lac. He reports a fall back in 06/2019 with head injury. He notes that he was told he had an aortic stenosis at that time. He reports that for that fall previously was completely mechanical without syncope and he remembers the entire event. He had a facial injury that time as well. Previous Echocardiogram performed 03/06/2019: - Hyperdynamic LV systolic function - Mild concentric LV Hypertrophy - Grade 1 LV diastolic dysfunction - Normal RV size and systolic function - Moderate calcified aortic stenosis with calculated aortic valve area 1.1cm2. - Trace aortic regurg - Trace mitral regurg - Trace tricuspid regurg - Normal estimated right heart pressures - Compared with prior echo 2013, aortic stenosis is now present. Allergies Allergy/AdvReac Type Severity Reaction Status Date / Time No Known Allergies Allergy Verified 01/04/20 17:21 Home Medications Home Medications Medication Instructions Recorded Confirmed Type B-complex with vitamin C [Super B 1 tab PO QAM 02/20/19 01/04/20 History Complex-Vitamin C] Lumify 1 drp OPB DAILY PRN 02/20/19 01/04/20 History cholecalciferol (vitamin D3) 2,000 unit PO QAM 02/20/19 01/04/20 History [Vitamin D3] diphenhydramine HCl [Unisom 50 mg PO HS PRN 02/20/19 01/04/20 History SleepGels] hydrocortisone [Proctosol HC] 1 applic [place] BID PRN 02/20/19 01/04/20 History latanoprost 1 drp OPB PM 02/20/19 01/04/20 History losartan 25 mg tablet 25 mg PO HS #90 tab 06/25/19 01/04/20 Rx losartan 50 mg tablet 50 mg PO DAILY #90 tab 06/25/19 01/04/20 Rx aspirin [Aspirin Low Dose] 81 mg PO DAILY 07/18/19 01/04/20 History calcium carbonate-vitamin D3 1 tab PO DAILY 01/04/20 01/04/20 History [Calcium 500 + D] Past Med/Surg History Medical History (Updated 01/04/20 @ 22:02 by Pop Goldberg DO) Aortic stenosis, moderate Per 03/06/19 echo pg 18mmHg Heart murmur Moderate . Hemochromatosis SEES [facility] History of skin cancer Several lesions removed, many benign. 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 Lázaro Torres left uncemented History of colonoscopy Hx of tonsillectomy Hx of wisdom tooth extraction S/P total hip arthroplasty 05/08/19 Dr. Lázaro Torres- Right uncemented ceramic on highly cross-linked polyethylene total hip arthroplasty Social History Preferred Language: Panamanian Communication Ability: Effective [employer] Required: No Beliefs That Will Affect Care: None marital status: Current Living Situation: Spouse current occupational status: retired Feels Safe at Home: Yes Safety Concerns: Feels Safe At This Time Smoking Status: Former smoker Tobacco Type: cigarettes ; Age Started Using Tobacco: 17 ; Age Quit Using Tobacco: 52 ; packs per day: 1 ; Second Hand Exposure: No ; Hx Alcohol Use: Yes Alcohol type: beer Alcohol Intake Frequency: Rarely Hx Substance Use: No Childhood Exposure to Second-Hand Smoke: Yes Dental Care, Regularly: Yes Physical Activity Frequency: 3-4 Times per Week Seatbelt Use: always Sunscreen Use: Yes Review of Systems Review of Systems: All systems reviewed & are unremarkable except as noted in HPI & below Constitutional: no fever and no chills Eyes: no blind spots and no worsening vision Ear, Nose, Mouth, Throat: no mouth lesions and no dental pain Respiratory: no cough and no dyspnea Cardiovascular: no chest pain, no dyspnea on exertion and no palpitations Gastrointestinal: + nausea (resolved with anti-emetic given in EMS); no abdominal pain, no vomiting, no change in bowel habits, no constipation, no diarrhea/loose stools and no blood in stools Genitourinary: no dysuria and no hematuria Musculoskeletal: no back pain and no neck pain Neurologic: no localized weakness, no numbness and no dizziness Endocrine: no polydipsia and no polyphagia Hematologic / Lymphatic: no easy bleeding and no coagulopathy Physical Exam Constitutional: WD/WN, vitals as above cooperative and comfortable Eyes: PERRL, conjunctivae normal, anicteric sclerae ENMT: external ear and nose normal, oropharynx normal Neck: normal visual inspection and trachea midline; no tracheal deviation and neck nontender Respiratory: no respiratory distress Auscultation: + diminished lung sounds (posterior bases bilaterally); no crackles and no rales Cardiovascular: Rate/Rhythm: regular rate; + abnormal rhythm (occasional PACs on monitor with mostly regular rhythm at bedside) Heart Sounds: + murmur (systolic ejection murmur best heard at bilateral 2nd IC) Gastrointestinal (Abdomen): Percussion/Palpation: abdomen soft; abdomen nontender, no guarding and abdomen not rigid Musculoskeletal: Head/Neck/Chest: + head abnormal to inspection (repaired left temoral laceration treated with sutures which are intact.); full ROM of neck Spine: lumbar spine normal to inspection; normal cervical ROM, no cervical spinal tenderness, no thoracic spinal tenderness and no lumbar spinal tenderness Extremities: strength 5/5 throughout Shoulder: no deformity Hip: no deformity Knee: no deformity Ankle: no deformity sutures intact for repaired lac to left dorsal hand; contusion to left anterior knee Skin: no rashes, warm and dry Neurologic: CN's II-XI intact bilaterally, moves all extremities and awake; no focal motor deficits and not confused Speech / Cognition: normal speech Motor/Sensory: no tremor Cranial Nerves: EOM intact bilaterally and tongue midline Psychiatric: A+Ox3, euthymic affect Results & Data Results & Data ([facility]) Vital Signs (Past 12 Hours) Vital Signs Temp Pulse Resp BP Pulse Ox 01/04/20 18:10 63 31 H 01/04/20 18:00 66 17 139/66 01/04/20 17:50 67 22 01/04/20 17:40 73 21 01/04/20 17:31 68 20 01/04/20 17:30 74 15 149/63 H 01/04/20 17:20 70 22 01/04/20 17:11 66 22 01/04/20 16:50 66 22 90 01/04/20 16:40 72 20 01/04/20 16:32 68 17 148/69 H 90 01/04/20 16:31 69 22 91 01/04/20 16:27 92 01/04/20 16:17 36.5 C 82 20 147/83 H 92 Laboratory Results Laboratory Results - last 24 hr 01/04/20 01/04/20 01/04/20 17:26 17:26 17:26 WBC 8.31 RBC 4.68 L Hgb 15.0 Hct 43.6 MCV 93.2 MCH 32.1 MCHC 34.4 RDW Std Deviation 44.4 RDW Coeff of Darin 13.1 Plt Count 149 MPV 10.0 Immature Gran % (Auto) 0.4 Neut % (Auto) 75.6 Lymph % (Auto) 14.1 Day % (Auto) 7.8 Eos % (Auto) 1.6 Baso % (Auto) 0.5 Immature Gran # (Auto) 0.03 H Neut # (Auto) 6.29 Lymph # (Auto) 1.17 L Day # (Auto) 0.65 H Eos # (Auto) 0.13 Baso # (Auto) 0.04 PT 10.9 INR 1.0 Sodium 140 Potassium 3.5 Chloride 106 Carbon Dioxide 27 Anion Gap 6.0 BUN 21 H Creatinine 0.91 Est Cr Clr Drug Dosing 79.8 Est GFR ( Amer) 93.9 Est GFR (Non-Af Amer) 81.0 BUN/Creatinine Ratio 23.4 H Glucose 121 H Calcium 9.8 Magnesium Pending Total Bilirubin 1.5 H AST 14 L ALT 28 Alkaline Phosphatase 70 Total Creatine Kinase Pending Troponin I < 0.015 Total Protein 6.8 Albumin 4.0 Globulin 2.8 Albumin/Globulin Ratio 1.5 Diagnostic Findings Multiple images obtained. In summary: C-spine CT - no fracture or subluxation CXR - Cardiomegaly with no acute abnormality L Elbow X-ray - no fracture CT Head - no hemorrhage, mass effect or acute territorial ischemia L Humerus X-ray - No fracture L Wrist X-ray - mild soft tissue swelling. No fracture L Knee X-ray - soft tissue swelling. No fracture L Hand X-ray - no bony abnormality Code Status & VTE Plan VTE Prophylaxis Plan VTE Prophylaxis will be ordered: Yes Supervising Physician Co-Signing Physician Notes Patient seen and examined, chart reviewed, case discussed with Dr. Ramos and I agree with his assessment and plan as documented above. Briefly, patient is a 79yo C male presenting after a fall, ?syncopal event at home with resultant head trauma. Patient recalls walking down his steps then thinks he may have lost his balance and fell and woke up on the ground. Witnesses report appx 2 minutes LOC. He denies CP/palpitations/dizziness/numbness/tingling/weakness preceding or following the event. Patient is fairly active and walks frequently - has never had exertional or post-exertional syncope, does not have frequent palpitations of chest discomfort. On exam he is afebrile, HD stable, NAD Pleasant male patient resting comfortably Skin - laceration left head with sushila in place, no active bleeding HEENT - trauma to left frontal as above, facial bones stable, no posterior auricular bruising or facial ecchymosis, neck supple, trachea midline, MMM Heart - +S1/S2, regular, 3/6 BC across precordiium Lungs - CTA Abd - +BS, soft, NT/ND Ext - no edema Neuro - no gross deficits Labs and images reviewed. EKG with PACs, PVCs, no acute ischemic changes. Multiple images without acute fracture. CT head negative Assessment/Plan - mechanical fall vs syncope. If syncopal event need to rule out cardiogenic cause, arrhythmia, progressive , structural heart disease -Observation to medical floor with telemetry -Neuro checks q 4 hours -Check 2D echo -Remainder of plan as above Resident Activity Tracking Resident Involvement: Resident Care Provided Care Provided: Adult [facility] Medicine
[2020-01-04] MEDS ORDERED: NITROGLYCERIN SL 0.4 MG/TAB TAB SL PRN (21:50)
[2020-01-04] MEDS ORDERED: POLYETHYLENE (MIRALAX) 17 GM PACK PO PRN (21:50)
[2020-01-04] MEDS ORDERED: ALUMINUM/MAGNESIUM SUSP 30 ML UDC PO PRN (21:50)
[2020-01-04] MEDS ORDERED: LATANOPROST 0.005% OP SOLN 2.5 ML BTL OPB SCH (21:50)
[2020-01-04] MEDS ORDERED: MAGNESIUM HYDROXIDE SUSP 30 ML UDC PO PRN (21:50)
[2020-01-04] MEDS ORDERED: ONDANSETRON INJ 2 MG/ML 2 ML VIAL IV PRN (21:50)
[2020-01-04] MEDS ORDERED: ACETAMINOPHEN 325 MG TAB PO PRN (21:50)
--- NOTE | 2020-01-04 23:28 | Billing Data ---
Date of Service January 04, 2020 Coding Level of Care Code 68507 OBS Care - Level 3
[2020-01-05 02:21] LABS: Basophils # (auto) 0.02 K/uL (0-0.2); Basophils % (auto) 0.2 %; Eosinophils # (auto) 0.07 K/uL (0-0.5); Eosinophils % (auto) 0.9 %; Hemoglobin 14.3 g/dL (14.0-18.0); Immature Granulocytes # (auto) 0.01 K/uL (0.00-0.02); Immature Granulocytes % (auto) 0.1 %; Lymphocytes % (auto) 14.9 %; Mean Corpuscular Hemoglobin 32.1 pg (25-34); Mean Corpuscular Hgb Conc 34.9 g/dL (32-36); Mean Corpuscular Volume 91.9 fL (80-100); Mean Platelet Volume 9.5 fL (7.4-10.4); Monocytes # (auto) 0.75 K/uL (0.11-0.59); Monocytes % (auto) 9.3 %; Neutrophils # (auto) 6.02 K/uL (1.4-6.5); Neutrophils % (auto) 74.6 %; Platelet Count 136 K/uL (130-400); RDW Standard Deviation 43.6 fL (36.4-46.3); Red Blood Count 4.46 M/uL (4.7-6.1); White Blood Count 8.07 K/uL (4.8-10.8)
[2020-01-05 02:43] LABS: BUN Creatinine Ratio 19.1 (10-20); Blood Urea Nitrogen 18 mg/dl (7-18); Calcium 9.1 mg/dl (8.5-10.1); Carbon Dioxide 29 mmol/L (21-32); Chloride 109 mmol/L (98-107); Creatinine Clr Calc Pharmacy 76.5 ml/min; Est GFR (African American) 89.1; Est GFR (Non-African American) 76.9; Glucose 108 mg/dl (70-99); Magnesium 2.2 mg/dl (1.8-2.4); Potassium 4.3 mmol/L (3.5-5.1); Sodium 143 mmol/L (136-145)
[2020-01-05 02:47] LABS: Troponin I < 0.015 ng/ml (0-0.045)
--- NOTE | 2020-01-05 09:06 | XCELERA ---
[id number]
--- NOTE | 2020-01-05 10:40 | Cardiology Consultation ---
Date of Consultation January 05, 2020 Assessment & Plan (1) Aortic stenosis, moderate: (2) Loss of consciousness: (3) Essential hypertension: ASSESSMENT/PLAN: 1. Loss of consciousness/fall: He distinctly remembers falling. His loss of consciousness appears to have occurred after striking his head, more consistent with contusion/concussion. To be sure that he is not having any significant arrhythmia, a 30 day event monitor will be arranged in the outpatient Cardiology office. 2. Aortic stenosis: We discussed the diagnosis in detail. Non severe. Recommend repeating echo in 1-2 years. He would like to follow up with Cardiology as an outpatient for further monitoring/surveillance. He is asymptomatic in this regard as expected. He has carotid bruits versus radiation of cardiac murmur. He believes that he has undergone a carotid duplex however I have not located the results at this time. If he has not had this done recently, would recommend that this be obtained in the future, but can be done as an outpatient. 3. Hypertension: Blood pressure has been normotensive to mildly hypertensive. No changes recommended at this time. Medications can be titrated as an outpatient as appropriate. 4. Disposition: He would like to follow up with Cardiology and therefore a 6 month appointment will be arranged through the cardiology office for surveillance purposes in regards to aortic stenosis. He will otherwise undergo 30 day event monitor in the meantime. Patient care discussed with Dr. Ureña of the primary hospitalist service. Thank you for allowing me to participate in the care of your patient. Please call for any other questions or concerns. Sincerely, Jordan Wynn M.D. History of Present Illness Reason for Consultation: Possible syncope/aortic stenosis Requesting Physician: Dr. Stefan Ramos Attending Physician: Oriana Ureña MD History of Present Illness Mr. Hinds is a very pleasant 79-year-old gentleman with aortic stenosis and hypertension who presented to [facility] via EMS after traumatic fall. According to the history and physical on presentation, there was concern for syncope but then perhaps that he remembered falling but lost consciousness after hitting his head. During our discussion, he was very clear that he remembers falling. He was walking up stairs to go to the mailbox. He remembers losing his balance feeling as though he was falling backwards. He then turned to the side and took a long step. He remembers falling. When he hit the ground however, he lost consciousness. The next thing he remembers was being on a gurney being loaded into the ambulance. Two passerby is noted him on the ground on consciousness and called for EMS. He reports that they mention that he was unconscious for 2 minutes or so. When he awakened, he remembers being nauseated while driving around in the back of the ambulance. He does not recall any issues with palpitations, chest pain, or shortness of breath prior to or following the event. He has felt well since here and was able to ambulate in the hallway without symptoms. He exercises most days of the week by walking 2.5-3 miles in 40 minutes. He does these activities without chest pain or shortness of breath or any other cardiovascular symptom. Exercise tolerance was described as stable. When not exercising, he remains active. He has not had any other issues with losing his balance or following. In the emergency department, he underwent sutures to his left arm and sushila to the left side of his scalp. He has hemochromatosis and typically undergoes phlebotomies every 3 months but his last phlebotomy was in January of 2019. He did not require phlebotomy due to 2 hip surgeries in 2019 and then his most recent 1 was postponed due to Covid-19. Review of systems: As above. Review of systems otherwise negative/unremarkab le. Family history: No known CAD. Social history: Quit smoking in 1991. Occasional alcohol. No drugs. Lives at home with his . They have a son in [facility]. Two granddaughters. HeServed time in the [employer]. 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 He is a former [employer] grad. He is unaccompanied. Allergies Allergy/AdvReac Type Severity Reaction Status Date / Time No Known Allergies Allergy Verified 01/04/20 17:21 Home Medications Home Medications Medication Instructions Recorded Confirmed Type B-complex with vitamin C [Super B 1 tab PO QAM 02/20/19 01/04/20 History Complex-Vitamin C] Lumify 1 drp OPB DAILY PRN 02/20/19 01/04/20 History cholecalciferol (vitamin D3) 2,000 unit PO QAM 02/20/19 01/04/20 History [Vitamin D3] hydrocortisone [Proctosol HC] 1 applic DC BID PRN 02/20/19 01/04/20 History latanoprost 1 drp OPB PM 02/20/19 01/04/20 History losartan 25 mg tablet 25 mg PO HS #90 tab 06/25/19 01/04/20 Rx losartan 50 mg tablet 50 mg PO DAILY #90 tab 06/25/19 01/04/20 Rx aspirin [Aspirin Low Dose] 81 mg PO DAILY 07/18/19 01/04/20 History calcium carbonate-vitamin D3 1 tab PO DAILY 01/04/20 01/04/20 History [Calcium 500 + D] Patient History Medical History (Updated 01/05/20 @ 13:19 by Jayme Wynn MD) Aortic stenosis, moderate Hemochromatosis SEES DR CLEARY [facility] History of skin cancer Several lesions removed, many benign. 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 Lázaro Torres left uncemented History of colonoscopy Hx of tonsillectomy Hx of wisdom tooth extraction S/P total hip arthroplasty 05/08/19 Dr. 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 Beliefs That Will Affect Care: None marital status: Current Living Situation: Spouse current occupational status: retired Feels Safe at Home: Yes Safety Concerns: Feels Safe At This Time Smoking Status: Former smoker Tobacco Type: cigarettes ; Age Started Using Tobacco: 17 ; Age Quit Using Tobacco: 52 ; packs per day: 1 ; Second Hand Exposure: No ; Hx Alcohol Use: Yes Alcohol type: beer Alcohol Intake Frequency: Rarely Hx Substance Use: No Childhood Exposure to Second-Hand Smoke: Yes Dental Care, Regularly: Yes Physical Activity Frequency: 3-4 Times per Week Seatbelt Use: always Sunscreen Use: Yes Physical Exam Physical Exam: Gen.: No acute distress. Alert and oriented. HEENT: Anicteric sclera. Left side of his scalp with sushila in place. Neck: No JVD. Bilateral bruits vs radiation of cardiac murmur. Normal carotid upstrokes bilaterally. Cardiac: PMI was nondisplaced. No ventricular heave. Regular rate and rhythm. Normal S1-S2. 2/6 mid peaking systolic ejection murmur heard best at right upper sternal border. No rubs or gallops. Pulmonary: Clear to auscultation bilaterally without wheezes, rales, or rhonchi. Abdomen: Soft, nontender, nondistended, with normoactive bowel sounds. No bruits noted. Extremities: 2+ radial pulses bilaterally. Distal left upper extremity with wound dressing in place. 2+ posterior tibialis pulses bilaterally. No edema or cyanosis. Psychiatric: Affect appears appropriate. Results & Data ([facility]) Vital Signs (Past 12 Hours) Vital Signs Temp Pulse Pulse Resp BP Pulse Ox 01/05/20 08:50 36.7 C 58 L 20 138/64 91 01/05/20 07:44 65 01/04/20 23:35 37.0 C 72 20 133/75 94 01/04/20 22:55 72 Laboratory Results Laboratory Results - last 24 hr 01/04/20 01/04/20 01/04/20 17:26 17:26 17:26 WBC 8.31 RBC 4.68 L Hgb 15.0 Hct 43.6 MCV 93.2 MCH 32.1 MCHC 34.4 RDW Std Deviation 44.4 RDW Coeff of Darin 13.1 Plt Count 149 MPV 10.0 Immature Gran % (Auto) 0.4 Neut % (Auto) 75.6 Lymph % (Auto) 14.1 Robertson % (Auto) 7.8 Eos % (Auto) 1.6 Baso % (Auto) 0.5 Immature Gran # (Auto) 0.03 H Neut # (Auto) 6.29 Lymph # (Auto) 1.17 L Robertson # (Auto) 0.65 H Eos # (Auto) 0.13 Baso # (Auto) 0.04 PT 10.9 INR 1.0 Sodium 140 Potassium 3.5 Chloride 106 Carbon Dioxide 27 Anion Gap 6.0 BUN 21 H Creatinine 0.91 Est Cr Clr Drug Dosing 79.8 Est GFR ( Amer) 93.9 Est GFR (Non-Af Amer) 81.0 BUN/Creatinine Ratio 23.4 H Glucose 121 H Calcium 9.8 Phosphorus Magnesium 2.4 Total Bilirubin 1.5 H AST 14 L ALT 28 Alkaline Phosphatase 70 Total Creatine Kinase 90 Troponin I < 0.015 Total Protein 6.8 Albumin 4.0 Globulin 2.8 Albumin/Globulin Ratio 1.5 01/05/20 01/05/20 01/05/20 02:12 02:12 08:01 WBC 8.07 RBC 4.46 L Hgb 14.3 Hct 41.0 L MCV 91.9 MCH 32.1 MCHC 34.9 RDW Std Deviation 43.6 RDW Coeff of Darin 13.0 Plt Count 136 MPV 9.5 Immature Gran % (Auto) 0.1 Neut % (Auto) 74.6 Lymph % (Auto) 14.9 Robertson % (Auto) 9.3 Eos % (Auto) 0.9 Baso % (Auto) 0.2 Immature Gran # (Auto) 0.01 Neut # (Auto) 6.02 Lymph # (Auto) 1.20 Robertson # (Auto) 0.75 H Eos # (Auto) 0.07 Baso # (Auto) 0.02 PT INR Sodium 143 Potassium 4.3 D Chloride 109 H Carbon Dioxide 29 Anion Gap 5.0 BUN 18 Creatinine 0.95 Est Cr Clr Drug Dosing 76.5 Est GFR ( Amer) 89.1 Est GFR (Non-Af Amer) 76.9 BUN/Creatinine Ratio 19.1 Glucose 108 H Calcium 9.1 Phosphorus 3.0 Magnesium 2.2 Total Bilirubin AST ALT Alkaline Phosphatase Total Creatine Kinase Troponin I < 0.015 < 0.015 Total Protein Albumin Globulin Albumin/Globulin Ratio Diagnostic Findings Telemetry personally reviewed: Sinus rhythm. No arrhythmia noted. PACs noted. Echo 01/05/2020: Normal LV size, wall motion, systolic function. EF 65-70%. Mild LVH. Mild biatrial dilation. Moderate aortic stenosis with trace regurgitation. Normal RVSP. ECG 01/05/2020: Sinus rhythm with PACs 62 bpm. Medications Administered Current Inpatient Medications Acetaminophen (Tylenol) 650 mg PO Q4H PRN PRN Reason: Pain or Fever Stop: 02/03/20 21:49 Last Admin: 01/05/20 03:21 Dose: 650 mg Documented by: Al Hydrox/Mg Hydrox/Simethicone (Maalox) 15 ml PO Q4H PRN PRN Reason: Dyspepsia Stop: 02/03/20 21:49 Latanoprost (Xalatan Oph) 1 drops OPB PM GARY Stop: 02/03/20 21:49 Last Admin: 01/04/20 22:45 Dose: 1 drops Documented by: Magnesium Hydroxide (Milk Of Magnesia) 30 ml PO Q12H PRN PRN Reason: Constipation Stop: 02/03/20 21:49 Nitroglycerin (Nitrostat) 0.4 mg SL UD PRN PRN Reason: Chest Pain Stop: 02/03/20 21:49 Ondansetron HCl (Zofran) 4 mg IV Q6H PRN PRN Reason: Nausea Stop: 02/03/20 21:49 Polyethylene Glycol (Miralax Powder Packet) 17 gm PO DAILY PRN PRN Reason: Constipation Stop: 02/03/20 21:49 PG Care Time/CCT Total # of Minutes Spent Total Time Spent: 45 Total Time Spent with Patient: Total time spent is greater than 50% in coordination of care (as documented) at patient's floor/unit and/or counseling patient: Coding Level of Care Code 74579 Initial Inpt Care Lvl 2 Diagnoses Aortic stenosis, moderate I35.0 Loss of consciousness R40.20 Essential hypertension I10
--- NOTE | 2020-01-05 12:49 | Discharge Summary ---
Date of Service January 05, 2020 Admission HPI Per Admitting Provider Dylan Hinds is a 79 y/o male with past medical history of HTN, Aortic Stenosis, bilateral hip replacements, who presented to [facility] via EMS after Syncopal episode. Dylan states this occurred around 3-4pm today, about 4.5 hours ago. He notes no prodromal symptoms. He states he was walking from his apartment to a community mailbox that is located in his apartment complex. He thinks that he lost his balance mechanically and tried rotating to fall on his front. However, his spouse reports that he was reporting he did have syncopal event. Regardless, he did have about 2 minutes of loss of consciousness status post fall. He did sustain injury to his head with a laceration and another laceration to his left dorsal hand. He notes that there were two people in the same community mailbox area that witnessed event and reported about 2 minutes LOC. He notes first thing he could remember was ambulance arriving. He denies any prodromal symptoms such as dizziness, shortness of breath, chest pain. He notes he was in his usual state of health up to fall. No recent illnesses. He notes he ate breakfast which consisted of 3 eggs and toast, but did not eat lunch. He notes he drinks heavy amount of coffee daily. He reports drinking approx 4 mugs of coffee today and notes they had a cup of tea together as well. He does state that he drinks water to compensate for his caffeine intake and reports being well hydrated today. He does note taking 2 Unisom sleep gels last night. He notes he had some nausea during EMS transport but with was relieved with medication. He denies any focal weakness or numbness; no slurred speech, no tongue injuries, no bladder or bowel loss. His notes that he is acting at his neuro baseline currently, with perhaps a difference of opinion of reported syncopal event caused by mechanical versus collapse. He notes he does take aspirin daily. He denies alcohol intake. ED workup included complete imaging workup. Patient had a CT Spine which was negative for fracture; CT Head with no bleed, mass effect, acute territorial ischemia; CXR with cardiomegaly without acute process; Left Elbow xray without fracture; Left humerus without fracture; Left wrist mild soft tissue swelling with no fracture; Left knee mild soft tissue swelling with no fracture; Left hand no fracture. His ECG was not normal with noted PVC, quality was poor for adequte evaluation of OH segments. Here in ED he notes left arm soreness but was unaware of imaging for other injuries. He did have suture repair to his left dorsal hand for laceration as well as sushila placed for his left temporal head lac. He reports a fall back in 06/2019 with head injury. He notes that he was told he had an aortic stenosis at that time. He reports that for that fall previously was completely mechanical without syncope and he remembers the entire event. He had a facial injury that time as well. Previous Echocardiogram performed 03/06/2019: - Hyperdynamic LV systolic function - Mild concentric LV Hypertrophy - Grade 1 LV diastolic dysfunction - Normal RV size and systolic function - Moderate calcified aortic stenosis with calculated aortic valve area 1.1cm2. - Trace aortic regurg - Trace mitral regurg - Trace tricuspid regurg - Normal estimated right heart pressures - Compared with prior echo 2013, aortic stenosis is now present. Admission Exam Per Admitting Provider Constitutional: WD/WN, vitals as above cooperative and comfortable Eyes: PERRL, conjunctivae normal, anicteric sclerae ENMT: external ear and nose normal, oropharynx normal Neck: normal visual inspection and trachea midline; no tracheal deviation and neck nontender Respiratory: no respiratory distress Auscultation: + diminished lung sounds (posterior bases bilaterally); no crackles and no rales Cardiovascular: Rate/Rhythm: regular rate; + abnormal rhythm (occasional PACs on monitor with mostly regular rhythm at bedside) Heart Sounds: + murmur (systolic ejection murmur best heard at bilateral 2nd IC) Gastrointestinal (Abdomen): Percussion/Palpation: abdomen soft; abdomen nontender, no guarding and abdomen not rigid Musculoskeletal: Head/Neck/Chest: + head abnormal to inspection (repaired left temoral laceration treated with sutures which are intact.); full ROM of neck Spine: lumbar spine normal to inspection; normal cervical ROM, no cervical spinal tenderness, no thoracic spinal tenderness and no lumbar spinal tenderness Extremities: strength 5/5 throughout Shoulder: no deformity Hip: no deformity Knee: no deformity Ankle: no deformity sutures intact for repaired lac to left dorsal hand; contusion to left anterior knee Skin: no rashes, warm and dry Neurologic: CN's II-XI intact bilaterally, moves all extremities and awake; no focal motor deficits and not confused Speech / Cognition: normal speech Motor/Sensory: no tremor Cranial Nerves: EOM intact bilaterally and tongue midline Psychiatric: A+Ox3, euthymic affect Principal Diagnosis Fall Discharge Exam General: Alert, oriented. No acute distress, sitting in chair at bedside Skin: Noted stapled lesion on left scalp, bandaged left hand. Noted actinic keratosis pointed out by pt on left shoulder Psych: Appropriate mood and affect Neuro: No gross deficits HEENT: Noted stapled lesion on left scalp with dried blood Chest: Nontender to palpation. CV: RRR, Blowing murmur appreciated Resp: Breath sounds clear bilaterally, no increased effort of breathing. No crackles/rhonchi/rales. Abdomen: BS+. Soft, nontender, nondistended. No guarding. No organomegaly appreciated. Extremities: No edema in lower extremities bilaterally. Discharge Data Allergies Allergy/AdvReac Type Severity Reaction Status Date / Time No Known Allergies Allergy Verified 01/04/20 17:21 Consultations 01/04/20 18:56 ED Decision to Admit Stat 01/04/20 21:50 Consult Cardiology Routine Ordered Studies 01/04/20 16:38 CT cervical spine wo con Stat CT head/brain wo con Stat Hospital Course (1) Primary hemochromatosis: (2) Essential hypertension: (3) Glaucoma: (4) Aortic stenosis, moderate: Edstephie Hinds is a 79 y/o male with past medical history of HTN, Aortic Stenosis, bilateral hip replacements, who presented to [facility] via EMS after a fall with head injury and reported that young couple who witnessed the fall noted approx 2 minute LOC. Denies prodromal symptoms. His states that he reported syncope prior to fall, but he now is stating that fall was mechanical. Concerning is that he sustained significant injury to head and left side of body with joint contusions, this supports possible syncope as he was unable to protect himself. Admitted on January 03 and discharged home on January 05, 2020 Fall in the setting of aortic stenosis and recent hip replacement -Pt presented with Hx of fall while climbing stairs and reaching for keys -CT Head unremarkable, no evidence of hemorrhage or mass effect -Most recent EKG noted sinus with PACs, rate of 62 and qtc of 432 -Echo from Feb 2019- noted EF >70%, grade 1 diastolic heart failure and notable aortic stenosis with LVH -Repeat Echo from this admission noted EF 65-70%, no significant diastolic failure and moderate aortic stenosis -Trops trended NEGATIVE -cervical spine CT, L elbow xray, L humerus xray, L hand xray- with no noted acute fractures. -cervical spine CT noted osteopenia and spondolytic change, L wrist XR, L knee XR both noted mild soft tissue swelling -Pt reported that young couple who witnessed the fall noted approx 2 minute LOC. No Hx of seizures. -Also has Hx of recent hip replacements and per patient, sometimes has "balance issues" -Cardiogenic considerations include prior aortic stenosis causing dysrhythmia, or fixed cardiac output on exertion walking to get mail (although he reports no issues with being active daily). -Appreciate Cardiology consult -suspect mechanical fall with concussion/contusion as pt remembers fall and had LOC after the fall -recommended 30 day event monitor that their office will set up -f/u in 6 months for aortic stenosis -can consider outpatient PT -discontinued Unisom on discharge and continued baby aspirin as no evidence of significant bleeding. Scalp laceration -sec to fall -received 8 sushila to scalp lesion and sutures on left hand laceration. Advised to present to PCP in 7-14 days for removal. Hx of hemochromatosis -stable HTN -continue home losartan on discharge Total Time Total Time Spent Total Time Spent (In Minutes): See attending attestation Discharge Plan Discharge Items Patient Disposition: Home - Self-Care Reason For Visit: SYNCOPE Discharge Diagnosis: Fall Activity: Per Instructions section Non-emergency contact: Primary Care Provider Call non-emergency contact if: your symptoms worsen and your pain is unusual for you Follow-up/Referrals: Agatha Correa MD [Primary Care Provider] - Diet: Heart Healthy Addtl Attending Provider Instructions: Mr. Hinds, you are being discharged. We suspect your fall was likely mechanical in nature but we are asking that you closely follow up with your primary care doctor after discharge as well as a analyst competitive intelligence. You were seen by the analyst competitive intelligence, who recommended that you wear a 30 day event monitor that the cardiology office will set up for you. Follow up with their office in the next week after discharge. We will let your primary care doctor know as well. Cardiology also recommended that you follow up with their office for your known aortic stenosis in SIX MONTHS. We are sorry about your injuries! You can have the sushila in your head removed in 7-14 days in the office of your primary care provider, as well as any removal of sutures in your hand. Noticed that you sometimes use Unisom sleep gels. We would recommend not using those as even though they are taken to help you sleep at night, they can have lingering effects during the day especially in our older population. We did not notice any significant bleeding, so you can continue to take your baby aspirin at home. Should you keep having recurrent falls, or you notice that you have an unrelenting headache, nausea/vomiting, changes to vision or confusion or changes to your mental status, please present to the nearest emergency room. It was a pleasure taking care of you during your stay here! Pending Studies at Discharge: No Stand-Alone Forms: My [facility] [employer], Smoking Cessation Medications and DC Order Prescriptions: Continued losartan 25 mg tablet 25 mg PO HS Qty: 90 RF: 1 losartan 50 mg tablet 50 mg PO DAILY Qty: 90 RF: 1 aspirin [Aspirin Low Dose] 81 mg Tablet,Delayed Release (Dr/Ec) 81 mg PO DAILY RF: 0 calcium carbonate-vitamin D3 [Calcium 500 + D] 500 mg(1,250mg) -200 unit Tablet 1 tab PO DAILY RF: 0 latanoprost 0.005 % Drops 1 drp OPB PM RF: 0 hydrocortisone [Proctosol HC] 2.5 % Cream With Perineal Applicator 1 applic OH BID PRN (Reason: Hemorrhoids) RF: 0 B-complex with vitamin C [Super B Complex-Vitamin C] Tablet 1 tab PO QAM RF: 0 cholecalciferol (vitamin D3) [Vitamin D3] 2,000 unit Tablet 2,000 unit PO QAM RF: 0 Lumify 0.025 % Drops 1 drp OPB DAILY PRN (Reason: Dry Eyes) RF: 0 Discontinued diphenhydramine HCl [Unisom SleepGels] 50 mg Capsule 50 mg PO HS PRN (Reason: Sleep) RF: 0 Discharge Orders: Discharge Order (Routine); Ordered 01/05/20 Ordered By: Melia He Admission Data Admit Date/Time: 01/04/20 20:27 Attending Provider: Oriana Ureña Admit Provider: Justo Ramos Primary Care Provider: Agatha Correa Other Providers: Evelyn Gan ; Jayme Wynn ; Coral Torres Other Interventions: Discharge Summary Assessment (RN) Last Done: 01/05/20 13:05 Supervising Physician Co-Signing Physician Notes Resident Physician Supervision Note: I independently interviewed and examined the patient and verified the walter history and physical, reviewed labs and image studies, discussed the case with the resident Dr. He and agree with the findings and care plan. Resident Activity Tracking Resident Involvement: Resident Care Provided Care Provided: Adult Hospital Medicine
--- NOTE | 2020-01-06 05:44 | Electrocardiogram Report ---
Test Reason : Blood Pressure : / mmHG Vent. Rate : 062 BPM Atrial Rate : 062 BPM P-R Int : 190 ms QRS Dur : 082 ms QT Int : 426 ms P-R-T Axes : 071 017 001 degrees QTc Int : 432 ms Sinus rhythm with Premature atrial complexes Otherwise normal ECG When compared with ECG of 04-JAN-2020 16:27, Premature ventricular complexes are no longer Present Confirmed by Jayme Wynn ([id number]) on 01/06/2020 5:43:29 AM Referred By: REFERRED SELF Confirmed By:Jayme Wynn
== END 2020-01-05 14:28 | disposition home or self-care (01) ==
LOC: 2W 16:17 → ED 16:17 → SUATTDRO 20:27 → 2W 21:10